=== PATIENT | female | born 1960 | race Caucasian/White ===

== ENCOUNTER → 2016-06-03 | Outpatient (CLI) | payer OTHER ==
[~2016-06-03] MED LIST: AMLH550 PO; ATOR-26 PO; CLX20 PO; FRRG PO; LISI2.5T5 PO; METF-383 PO; NEOMOIN2 TOP; POTA10CA28 PO
--- NOTE | 2016-06-03 13:52 | MAMMOGRAPHY REPORT ---
BILATERAL DIGITAL SCREENING MAMMOGRAM TOMOSYNTHESIS WITH CAD: 06/03/2016 CLINICAL HISTORY: Routine screening. Patient has no complaints. TECHNIQUE: Breast tomosynthesis in addition to standard 2D mammography was performed. Current study was also evaluated with a Computer Aided Detection (CAD) system. COMPARISON: Comparison is made to exams dated: 05/30/2014 mammogram, 06/01/2015 mammogram, 05/13/2013 ma mmogram, 04/26/2012 mammogram, 06/09/2011 mammogram, and 06/01/2010 mamm[facility] - [facility]. BREAST COMPOSITION: There are scattered areas of fibroglandular density in both breasts. FINDINGS: No suspicious masses, calcifications, or areas of architectural distortion are noted in e ither breast. There has been no significant interval change compared to prior exams. IMPRESSION: ACR BI-RADS CATEGORY 1: NEGATIVE There is no mammographic evidence of malignancy. A 1 year screening mammogram is recommended. The p atient will receive written notification of the results. Approximately 10% of breast cancers are not detected with mammography. A negative mammographic repor t should not delay biopsy if a clinically suggestive mass is present. Annetta Dunn M.D. ah/:06/03/2016 13:13:22 Landscape Manager: Frances ORTEGA(Tita)(M), [facility] letter sent: Normal 1/2 BI-RADS Code: ACR BI-RADS Category 1: Negative
== END | disposition home or self-care (01) ==
LOC: C.MAMM 09:00
PROVIDERS: ATTEND Family Medicine
DX: Z12.31 Encounter for screening mammogram for malignant neoplasm of breast (principal)

== ENCOUNTER → 2017-06-05 | Outpatient (CLI) | payer OTHER ==
[~2017-06-05] MED LIST changes: -NEOMOIN2 TOP; +NEOMOIN3 TOP
--- NOTE | 2017-06-06 12:57 | MAMMOGRAPHY REPORT ---
BILATERAL DIGITAL SCREENING MAMMOGRAM TOMOSYNTHESIS WITH CAD: 06/05/2017 CLINICAL HISTORY: Routine screening. Patient has no complaints. TECHNIQUE: Breast tomosynthesis in addition to standard 2D mammography was performed. Current study was also evaluated with a Computer Aided Detection (CAD) system. COMPARISON: Comparison is made to exams dated: 06/03/2016 mammogram, 06/01/2015 mammogram, 05/30/2014 [place] m mogram, 05/13/2013 mammogram, 04/26/2012 mammogram, and 06/09/2011 mammogram - [facility] er. BREAST COMPOSITION: There are scattered areas of fibroglandular density in both breasts. FINDINGS: There is a new 6.5 mm focal asymmetry in the 11:00 to 12:00 posterior right breast, for wh ich additional targeted ultrasound and possible additional mammographic views are recommended. No other suspicious mass, architectural distortion or cluster of microcalcifications is seen bilatera lly. IMPRESSION: ACR BI-RADS CATEGORY 0: INCOMPLETE EVALUATION: NEED ADDITIONAL IMAGING EVALUATION The new 6.5 mm focal asymmetry in the 11:00 to 12:00 posterior right breast needs additional evaluati on. The patient will be called to schedule an appointment. Approximately 10% of breast cancers are not detected with mammography. A negative mammographic report should not delay biopsy if a clinically suggestive mass is present. Helena Bailey M.D. ay/:06/05/2017 15:34:34 Origination Specialist: Catia Acevedo [facility] letter sent: Addl Imaging 0 BI-RADS Code: ACR BI-RADS Category 0: Incomplete Evaluation: Need Additional Imaging Evaluation
== END | disposition home or self-care (01) ==
LOC: C.MAMM 13:18
PROVIDERS: ATTEND Family Medicine
DX: Z12.31 Encounter for screening mammogram for malignant neoplasm of breast (principal); N64.89 Other specified disorders of breast

== ENCOUNTER → 2017-06-14 | Outpatient (CLI) | payer OTHER ==
--- NOTE | 2017-06-14 15:14 | MAMMOGRAPHY REPORT ---
UNILATERAL RIGHT DIGITAL DIAGNOSTIC MAMMOGRAM WITH CAD AND TARGETED RIGHT ULTRASOUND: 06/14/2017 CLINICAL HISTORY: 56-year-old woman called back from screening mammography for a newly visualized sub centimeter focal asymmetry in the upper outer quadrant of the right breast. Patient denies any known trauma or focal bruising in the superior right breast. TECHNIQUE: Spot compression right CC and MLO tomosynthesis images were obtained. A repeat right CC s pot compression view was obtained given breast mobility and the lesion is actually located in the 12: 00 axis based on the additional views. COMPARISON: Comparison is made to exams dated: 06/05/2017 mammogram, 06/03/2016 mammogram, 06/01/2015 ma mmogram, 05/30/2014 mammogram, 05/13/2013 mammogram, and 04/26/2012 mammogram - [facility]. BREAST COMPOSITION: There are scattered areas of fibroglandular density in the right breast. FINDINGS: The supplemental spot compression tomosynthesis images demonstrate a persistent rounded 5 mm dense focal asymmetry with tiny internal round lucencies, in the 12:00 posterior right breast. No associated architectural distortion or calcification. Further characterization with ultrasound was performed. On visual inspection, there is no evidence of bruising throughout the superior and 12:00 left breast. On ultrasound in the 12:00 right breast, 11 cm from the nipple, there is a superficial mixed echoge nicity mass. A hypoechoic area is noted with an echogenic tissue and the hypoechoic area is horizont al in orientation, there is an anechoic tubular structure adjacent to the mixed echogenicity lesion. Given indistinct borders it is difficult to obtain accurate measurements but it measures a proximall y 7.6 x 4.0 x 10.0 mm. This may be overestimated and the mammographic measurements are felt to be mo re accurate. This lesion could represent benign fat necrosis but given no known history of trauma it is indeterminate. Options of short follow-up versus tissue sampling were provided and we will opt t o biopsy this lesion for definitive characterization. IMPRESSION: ACR BI-RADS CATEGORY 4: SUSPICIOUS, TARGETED ULTRASOUND ACR BI-RADS CATEGORY 4: SUSPICIO US 1. Ultrasound guided core biopsy is recommended for a mixed echogenicity 5 mm mass in the 12:00 righ t breast, 11 cm from the nipple, which correlates with the newly visualized focal mammographic asymme try. These results and recommendations were discussed with the patient at the time of the exam. She tenta tively scheduled the biopsy prior to leaving our department. Approximately 10% of breast cancers are not detected with mammography. A negative mammographic report should not delay biopsy if a clinically suggestive mass is present. Helena Bailey M.D. ay/:06/14/2017 14:33:42 Deputy Sheriff Lieutenant: Nelida ORTEGA(Tita)(Kaylen), [facility] letter sent: Abnormal 4/5 BI-RADS Code: ACR BI-RADS Category 4: Suspicious Ultrasound BI-RADS: ACR BI-RADS Category 4: Suspici ous
== END | disposition home or self-care (01) ==
LOC: C.MAMM 13:29
PROVIDERS: ATTEND Family Medicine
DX: N63.41 Unspecified lump in right breast, subareolar (principal)

== ENCOUNTER → 2017-06-23 | Outpatient (CLI) | payer OTHER ==
--- NOTE | 2017-06-23 10:28 | Discharge Instructions ---
Discharge Instructions Procedure Procedure Date: Jun 23, 2017. Reason for visit: Right; Mixed Echogenecity Mass. Discharge Discharge Date: Jun 23, 2017. Discharge Diagnosis: status post breast biopsy Instructions Activity Recommendations: Additional Limitations (see below) Return to School/Work: no limitations Recommended Home Diet: No Limitations Provider Instructions: ACTIVITY RECOMMENDATIONS: * No lifting, pushing, pulling or exercising the affected side for three days. RETURN TO SCHOOL/WORK: * You may return to work/school after the procedure, but do not perform any strenuous activities for 24 to 48 hours. MEDICATIONS: * Tylenol (two 325 mg) every four to six hours if needed for mild pain (if not allergic to Tylenol). DIET: * Resume previous diet. SPECIAL CARE INSTRUCTIONS: * Keep biopsy site dry for 24 hours. May shower after 24 hours, but do not soak (bathe) incision. * May remove Tegaderm (plastic patch) tomorrow AFTER showering. * Leave the steri-strips on for one week. Allow the steri-strips to fall off by themselves. If not off after one week, you may remove them. You may place a Bandaid crosswise over the strips, if desired. * Apply ice 10 minutes on and 10 minutes off as needed. * Wear a bra at bedtime to sleep more comfortably for 2-3 days. * Your referring physician should have the results after approximately 5 to 7 business days. * Call for unusual bleeding, fever, drainage, etc or if you have any questions call during normal business hours or after hours call Dr Dunn, [phone]. FOLLOW UP VISIT: Follow-up with Referring Physician as scheduled. Allergies Coded Allergies: No Known Allergies (Unverified , 09/27/13) PER DR. JOAQUIN'S H&P SEPTEMBER 2012 [facility] Recommendations: Call your doctor if: * Temperature above 101 degrees * Pain not relieved by pain medicine ordered * There is increased drainage or redness from any incision * You have any unanswered questions or concerns. Your Doctors Instructions noted above were prepared by provider Annetta Dunn. Patient Signature Section: Patient Instructions Signature Page Kristin Kohli Patient (or Guardian) Signature/Date: I have read and understand the instructions given to me by my caregivers. Caregiver/RN/Doctor Signature/Date: The above-named patient and/or guardian has received patient instructions on this date. + Original Patient Signature Page (only) stays with chart. Please make copy for patient.
--- NOTE | 2017-06-23 13:36 | MAMMOGRAPHY REPORT ---
UNILATERAL RIGHT DIGITAL DIAGNOSTIC MAMMOGRAM TOMOSYNTHESIS: 06/23/2017 CLINICAL HISTORY: Status post right breast biopsy. TECHNIQUE: Breast tomosynthesis in addition to standard 2D mammography was performed. Postprocedura l right CC and ML tomosynthesis images were obtained. COMPARISON: Comparison is made to exams dated: 06/23/2017 ultrasound biopsy, 06/14/2017 ultrasound, 05/26 mammogram, 06/05/2017 mammogram, 06/03/2016 mammogram, and 06/01/2015 mammogram - [facility]. BREAST COMPOSITION: There are scattered areas of fibroglandular density in the right breast. FINDINGS: A new biopsy marker clip is seen at the site of the biopsied mass in the right 12:00 breas t. No significant postbiopsy hematoma is seen. IMPRESSION: POST PROCEDURE IMAGING FOR MARKER PLACEMENT New biopsy marker clip status post right breast biopsy. Pathology results are pending. Approximately 10% of breast cancers are not detected with mammography. A negative mammographic report should not delay biopsy if a clinically suggestive mass is present. Annetta Dunn M.D. ah/:06/23/2017 10:39:13 Guard Dance Hall: Catia Acevedo, [facility] BI-RADS Code: Post Procedure Imaging For Marker Placement
--- NOTE | 2017-06-23 13:36 | MAMMOGRAPHY REPORT ---
ULTRASOUND GUIDED BIOPSY RIGHT BREAST: 06/23/2017 CLINICAL HISTORY: Mixed echogenicity mass in the right 12:00 breast. PATIENT CONSENT: The procedure, risks and benefits were discussed with the patient and informed writt en consent was obtained. A timeout was performed immediately prior to the procedure. PROCEDURE DESCRIPTION: With ultrasound guidance, aseptic technique, and lidocaine as the local anesth etic (1% lidocaine to anesthetize the skin and 1% lidocaine with epinephrine to anesthetize the deepe r tissues), the mass of concern in the right 12:00 breast was sampled 3 times with a 14-gauge achieve biopsy needle. Immediately thereafter, with ultrasound guidance, aseptic technique, and lidocaine as the local anesthetic, a metallic localizer clip was placed at the biopsy site. Direct pressure was applied to the site immediately post procedure and hemostasis was achieved. Postprocedure unilateral mammograms were performed to confirm clip placement. The patient tolerated the procedure without co mplication. She was given wound care instructions. The specimens were sent to pathology for analysis . COMPARISON: Comparison is made to exams dated: 06/14/2017 ultrasound, 06/14/2017 mammogram, 06/05/2017 mammogram, 06/03/2016 mammogram, 06/01/2015 mammogram, and 05/30/2014 mammogram - [facility]. IMPRESSION: ULTRASOUND GUIDED BIOPSY Ultrasound guided core needle biopsy of the right 12:00 breast mass, with clip placement. The patien t will receive pathology results from her referring provider. Annetta Dunn M.D. /:06/23/2017 10:29:45 Oxygen Therapist: Catia Acevedo, [facility]
== END | disposition home or self-care (01) ==
LOC: C.MAMM 09:43
PROVIDERS: ATTEND Family Medicine
DX: N63.10 Unspecified lump in the right breast, unspecified quadrant (principal); N64.1 Fat necrosis of breast

== ENCOUNTER 2024-11-01 10:09 | Inpatient (IN) ==
[2024-11-01] MEDS: SODIUM CHLORIDE 0.9% 1,000 ML IV ONE ×2 (10:30→11:49)
[2024-11-01 10:53] LABS: Hematocrit (blood only) 36.8 % (37.0-47.0); Hemoglobin 12.5 g/dl (12.0-16.0); Immature Granulocytes # (auto) 0.41 K/uL (0.01-0.20); Immature Granulocytes % (auto) 3.9 %; Mean Corpuscular Hemoglobin 30.8 pg (25.0-34.0); Mean Corpuscular Volume 90.6 fL (80.0-100.0); Platelet Count 541 K/uL (130-400); RDW Standard Deviation 42.7 fL (36.4-46.3); Red Blood Count 4.06 M/uL (4.20-5.40); White Blood Count 10.46 K/ul (4.8-10.8)
--- NOTE | 2024-11-01 10:54 | XRay Report ---
XR chest 1V portable CLINICAL HISTORY: Sepsis. COMPARISON STUDY: Chest radiograph August 20, 2023. FINDINGS: Lung volumes are normal. Lungs are clear. There is no pneumothorax or pleural effusion. Car diac size is normal. Mediastinal contours are normal. There is no evidence for pulmonary edema. IMPRESSION: No acute cardiopulmonary findings. ACT 112: Negative or not required by law. Electronically signed by: Conner Gautam M.D. 11/01/2024 10:53 AM
[2024-11-01 11:17] LABS: Alanine Aminotransferase 92.0 U/L (7-52); Albumin Globulin Ratio 1.0 (0.9-2); Alkaline Phosphatase 129.0 U/L (34-104); Anion Gap 12.0 (3-11); Bilirubin,Total 0.4 mg/dl (0.2-1.0); Blood Urea Nitrogen 50.0 mg/dl (6-23); Calcium 9.2 mg/dl (8.6-10.3); Carbon Dioxide 24.0 mmol/L (21-32); Chloride 91.0 mmol/L (98-107); Creatinine Clr Calc Pharmacy 17.1 ml/min; Globulin 4.0 gm/dl (2.5-4.0); Glucose 165.0 mg/dl (70-99(Fasting)); Magnesium 1.1 mg/dl (1.7-2.4); Potassium 5.8 mmol/L (3.5-5.1); Sodium 127.0 mmol/L (136-145); Total Protein 7.9 gm/dl (6.0-8.3)
--- NOTE | 2024-11-01 11:23 | Emergency Department Note ---
Impression & Plan Acute dehydration, JOSE MARTIN (acute kidney injury), Hypomagnesemia, Transaminitis, Acute hypotension, Acute hyponatremia, Acute hyperkalemia, Elevated lactic acid level ED Provider Note HISTORY OF PRESENT ILLNESS: Patient is a 64-year-old female presenting with lightheadedness. Patient reports that starting yesterday she felt very lightheaded and woozy every time she stood up. Reports that she did only walk a few steps before she had to sit down again secondary to her symptoms. Denies any nausea or vomiting. Denies any diarrhea. Denies any fevers. She does have a ileostomy in place that was placed recently secondary to perforated diverticulitis. She denies any recent antibiotic use. She has no complaints other than feeling woozy. Denies any chest pain or shortness of breath. Denies any DVT or PE history. Patient reports she has been eating and drinking without any issue. Denies any dysuria or hematuria. ROS: as above PHYSICAL EXAM: Constitutional: Patient appears in no acute distress. HENT: Head: Normocephalic and atraumatic. Eyes: EOMI, PERRL Mouth/Throat: Mucous membranes moist. Neck: Trachea midline. Neck supple. Cardiovascular: Tachycardic with regular rhythm. No murmurs, rubs or gallops. Intact distal pulses. Pulmonary/Chest: No respiratory distress. Breath sounds clear and equal bilaterally. No wheezes or rales. No chest wall tenderness to palpation. Abdominal: Abdomen soft, no tenderness, rebound or guarding. Ileostomy in place. Musculoskeletal: No edema, tenderness or deformity noted. Skin: Warm and dry. No rash, erythema, pallor or cyanosis Psychiatric: Appropriate mood and affect for situation. Neurological: Alert and keenly responsive. CN II-XII grossly intact, moving all extremities equally and fully. MDM: - Vitals signs showed hypotension and tachycardia. - History obtained via patient. History as above. - Chronic conditions affecting care: HTN; HLD; DM-2 - Differential diagnoses include, but are not limited to: Sepsis; dehydration; electrolyte abnormality; UTI; pneumonia - Order placed for continuous cardiac monitoring. At this time, monitor showed rate of 81 bpm with normal sinus rhythm, per my interpretation. - External medical records reviewed. Wound visit note from 12/19/2019 was reviewed. Patient was followed in wound clinic for diabetic foot ulcer. - EKG image interpreted by myself showed normal sinus rhythm. Rate 91 bpm. QT 320. No acute ischemic changes. - Laboratory workup interpreted by myself showed normal WBC; thrombocytosis (plt 541); normal PT/INR; hyponatremia (Na 127); hyperkalemia (K 5.8); elevated lactate (3.6); JOSE MARTIN (Cr 3.37); elevated anion gap (12) with only slightly elevated glucose (165); hypomagnesemia (Mg 1.1); transaminitis (AST 41; ALT 92) with normal total bilirubin; normal troponin; normal procalcitonin; normal TSH - CXR image reviewed by myself is new for pneumonia, per my interpretation. - UA negative for infection - Blood cultures obtained - Patient given 2L NS in ER. Patient sepsis fluid volume calculation based on ideal body weight is 1500 mL. - Patient was able to void after fluid resusitation. - Patient's blood pressure did improve with volume resuscitation. She reports her dizziness and lightheadedness has also improved. Given 1 g IV magnesium for electrolyte replacement. - Considered CT abdomen/pelvis imaging, but patient does not have any reproducible abdominal pain on assessment. - Discussion was had with bilingual patient support caseworker about patient's case and need for admission - Hospitalist consulted for admission at 12:46 - Patient admitted to [facility] service for further evaluation and management. I have personally spent 61 minutes of critical care time in the direct management of this patient. This includes bedside care, interpretation of diagnostic studies, and testing, discussion with consultants, patient, and family members, and other required patient management activities. This 61 minutes is in excess of all separately billable procedures. ASSESSMENT AND PLAN: Diagnosis: acute dehydration; acute hyponatremia; acute hyperkalemia; elevated lactic acid; JOSE MARTIN; hypomagnesemia; transaminitis; acute hypotension Plan: admit Past Med/Surg History Problem List (Updated 11/01/24 @ 13:11 by Patricia Mitchell MD) Elevated lactic acid level (Acute) Acute hyperkalemia (Acute) Acute hyponatremia (Acute) Acute hypotension (Acute) Transaminitis (Acute) Hypomagnesemia (Acute) JOSE MARTIN (acute kidney injury) (Acute) Acute dehydration (Acute) Transaminitis Hypomagnesemia Acute kidney injury Hyponatremia Hypotension Medical History (Updated 11/01/24 @ 13:11 by Patricia Mitchell MD) Small bowel obstruction Endometriosis GERD (gastroesophageal reflux disease) Kidney stones Depression Diverticulosis Diabetes mellitus Hyperlipidemia Hypertension Surgical History History of hysterectomy History of bowel resection robotic low anterior resection with coloproctostomy, intraop flex sigmoidoscopy, diverting loop ileostomy 10/14/2024 History of bilateral knee replacement Family History (Updated 11/01/24 @ 13:01 by SARWAT Oliver) Father Diabetes Stroke Hypertension Social History Smoking Status: Never smoker Hx Alcohol Use: No Hx Substance Use: No Preferred Language: Maori Beliefs That Will Affect Care: Restorationism marital status: Single current occupational status: retired Feels Safe at Home: Yes Allergies Allergies Allergy/AdvReac Type Severity Reaction Status Date / Time No Known Allergies Allergy Unverified 11/01/24 11:04 Home Meds Home Medications Medication Instructions Recorded Confirmed aspirin 81 mg tablet,delayed 81 mg PO DAILY 11/21/19 11/01/24 release atorvastatin 40 mg tablet 40 mg PO DAILY 11/21/19 11/01/24 citalopram 40 mg tablet 40 mg PO DAILY 11/21/19 11/01/24 metformin 850 mg tablet 850 mg PO BID 11/21/19 11/01/24 potassium chloride 10 mEq 10 meq PO DAILY 11/21/19 11/01/24 capsule,extended release lisinopril 20 1 tab PO DAILY 10/23/24 11/01/24 mg-hydrochlorothiazide 25 mg tablet buspirone 5 mg tablet 5 mg PO BID PRN Anxiety 11/01/24 11/01/24 cyanocobalamin (vitamin B-12) 1,000 mcg PO DAILY 11/01/24 11/01/24 1,000 mcg tablet (Vitamin B-12) fluticasone propionate 50 2 spray intranasal QAM 11/01/24 11/01/24 mcg/actuation nasal spray,suspension multivitamin with [id number] 1 tab PO DAILY 11/01/24 11/01/24 400 mcg-120 mg tablet (One Daily Women 50 Plus) Results & Data (ED) Vital Signs Vital Signs - 24 hr 11/01/24 10:13 11/01/24 10:24 11/01/24 10:30 Temperature 36.7 C Temperature Source Oral Pulse Rate 93 H 94 H 90 Pulse Rate [Finger] Pulse Rate from SpO2 Sensor Respiratory Rate 22 18 Respiratory Effort / Characteristics Non-Labored Spontaneous Respiratory Depth Normal Respiratory Pattern Blood Pressure 84/59 L 80/54 L Blood Pressure [Right Arm] Blood Pressure Mean 67 60 Blood Pressure Mean [Right Arm] Blood Pressure Position [Right Arm] Pulse Oximetry 100 99 Oxygen Delivery Method Room Air Room Air Sepsis Recent Fever Within 48 Hours No Sepsis New/Unexplained Change in Mental Status N/A Sepsis Action Taken by Nursing No Action Required 11/01/24 10:30 11/01/24 10:31 11/01/24 10:33 Temperature Temperature Source Pulse Rate 90 Pulse Rate [Finger] 91 H Pulse Rate from SpO2 Sensor 90 Respiratory Rate 18 20 Respiratory Effort / Characteristics Non-Labored Spontaneous Respiratory Depth Normal Respiratory Pattern Regular Blood Pressure 80/54 L Blood Pressure [Right Arm] 80/54 L Blood Pressure Mean 60 Blood Pressure Mean [Right Arm] 62 Blood Pressure Position [Right Arm] Sitting Pulse Oximetry 99 98 Oxygen Delivery Method Room Air Sepsis Recent Fever Within 48 Hours Sepsis New/Unexplained Change in Mental Status Sepsis Action Taken by Nursing 11/01/24 10:45 11/01/24 10:45 11/01/24 11:00 Temperature Temperature Source Pulse Rate 99 H Pulse Rate [Finger] Pulse Rate from SpO2 Sensor Respiratory Rate 18 Respiratory Effort / Characteristics Respiratory Depth Respiratory Pattern Blood Pressure 82/58 L 107/58 L Blood Pressure [Right Arm] Blood Pressure Mean 70 67 Blood Pressure Mean [Right Arm] Blood Pressure Position [Right Arm] Pulse Oximetry 98 Oxygen Delivery Method Room Air Sepsis Recent Fever Within 48 Hours Sepsis New/Unexplained Change in Mental Status Sepsis Action Taken by Nursing 11/01/24 11:00 11/01/24 11:00 11/01/24 11:00 Temperature Temperature Source Pulse Rate Pulse Rate [Finger] Pulse Rate from SpO2 Sensor Respiratory Rate Respiratory Effort / Characteristics Respiratory Depth Respiratory Pattern Blood Pressure 107/58 L 107/58 L 107/58 L Blood Pressure [Right Arm] Blood Pressure Mean 67 67 67 Blood Pressure Mean [Right Arm] Blood Pressure Position [Right Arm] Pulse Oximetry Oxygen Delivery Method Sepsis Recent Fever Within 48 Hours Sepsis New/Unexplained Change in Mental Status Sepsis Action Taken by Nursing 11/01/24 11:00 11/01/24 11:03 11/01/24 11:15 Temperature Temperature Source Pulse Rate 85 82 Pulse Rate [Finger] Pulse Rate from SpO2 Sensor Respiratory Rate 22 16 Respiratory Effort / Characteristics Respiratory Depth Respiratory Pattern Blood Pressure 98/65 L Blood Pressure [Right Arm] Blood Pressure Mean 70 Blood Pressure Mean [Right Arm] Blood Pressure Position [Right Arm] Pulse Oximetry Oxygen Delivery Method Sepsis Recent Fever Within 48 Hours Sepsis New/Unexplained Change in Mental Status Sepsis Action Taken by Nursing 11/01/24 11:18 11/01/24 11:32 11/01/24 11:32 Temperature Temperature Source Pulse Rate 79 Pulse Rate [Finger] Pulse Rate from SpO2 Sensor 79 Respiratory Rate 27 H Respiratory Effort / Characteristics Respiratory Depth Respiratory Pattern Blood Pressure 113/68 113/68 Blood Pressure [Right Arm] Blood Pressure Mean 76 76 Blood Pressure Mean [Right Arm] Blood Pressure Position [Right Arm] Pulse Oximetry 100 Oxygen Delivery Method Sepsis Recent Fever Within 48 Hours Sepsis New/Unexplained Change in Mental Status Sepsis Action Taken by Nursing 11/01/24 11:33 11/01/24 11:39 11/01/24 11:45 Temperature Temperature Source Pulse Rate 80 80 Pulse Rate [Finger] Pulse Rate from SpO2 Sensor 80 80 Respiratory Rate 28 H 20 Respiratory Effort / Characteristics Respiratory Depth Respiratory Pattern Blood Pressure 100/65 Blood Pressure [Right Arm] Blood Pressure Mean 79 Blood Pressure Mean [Right Arm] Blood Pressure Position [Right Arm] Pulse Oximetry 97 100 Oxygen Delivery Method Sepsis Recent Fever Within 48 Hours Sepsis New/Unexplained Change in Mental Status Sepsis Action Taken by Nursing 11/01/24 11:45 11/01/24 12:00 11/01/24 12:00 Temperature Temperature Source Pulse Rate 81 Pulse Rate [Finger] Pulse Rate from SpO2 Sensor 80 Respiratory Rate 22 Respiratory Effort / Characteristics Respiratory Depth Respiratory Pattern Blood Pressure 100/65 104/66 Blood Pressure [Right Arm] Blood Pressure Mean 79 78 Blood Pressure Mean [Right Arm] Blood Pressure Position [Right Arm] Pulse Oximetry 98 Oxygen Delivery Method Sepsis Recent Fever Within 48 Hours Sepsis New/Unexplained Change in Mental Status Sepsis Action Taken by Nursing 11/01/24 12:00 Temperature Temperature Source Pulse Rate Pulse Rate [Finger] Pulse Rate from SpO2 Sensor Respiratory Rate Respiratory Effort / Characteristics Respiratory Depth Respiratory Pattern Blood Pressure 104/66 Blood Pressure [Right Arm] Blood Pressure Mean 78 Blood Pressure Mean [Right Arm] Blood Pressure Position [Right Arm] Pulse Oximetry Oxygen Delivery Method Sepsis Recent Fever Within 48 Hours Sepsis New/Unexplained Change in Mental Status Sepsis Action Taken by Nursing Laboratory Data 11/01/24 10:23 11/01/24 10:23 Lab Results 11/01/24 11/01/24 11/01/24 Range/Units 10:23 10:38 12:24 WBC 10.46 (4.8-10.8) K/ul RBC 4.06 L (4.20-5.40) M/uL Hgb 12.5 (12.0-16.0) g/dl Hct 36.8 L (37.0-47.0) % MCV 90.6 (80.0-100.0) fL MCH 30.8 (25.0-34.0) pg MCHC 34.0 (32.0-36.0) g/dL RDW Std Deviation 42.7 (36.4-46.3) fL RDW Coeff of Cammy 13.0 (11.5-14.5) % Plt Count 541 H (130-400) K/uL MPV 9.8 (9.4-12.4) fL Immature Gran % (Auto) 3.9 % Neut % (Auto) 62.2 % Lymph % (Auto) 24.2 % Foard % (Auto) 7.9 % Eos % (Auto) 1.2 % Baso % (Auto) 0.6 % Neut # (Auto) 6.50 (1.40-6.50) K/uL Lymph # (Auto) 2.53 (1.20-3.40) K/uL Foard # (Auto) 0.83 H (0.11-0.59) K/uL Eos # (Auto) 0.13 (0.00-0.50) K/uL Baso # (Auto) 0.06 (0.00-0.20) K/uL Immature Gran # (Auto) 0.41 H (0.01-0.20) K/uL PT 10.6 (9.0-12.0) Seconds INR 1.0 (0.9-1.1) APTT 26 (21-31) Seconds PTT Ratio 1.0 Sodium 127 L (136-145) mmol/L Potassium 5.8 H (3.5-5.1) mmol/L Chloride 91 L (98-107) mmol/L Carbon Dioxide 24 (21-32) mmol/L Anion Gap 12 H (3-11) BUN 50 H (6-23) mg/dl Creatinine 3.37 H (0.6-1.2) mg/dl Est Cr Clr Drug Dosing 17.1 ml/min eGFR 14.82 BUN/Creatinine Ratio 14.8 (10-20) Glucose 165 H (70-99(Fasting)) mg/dl Lactate 3.6 H* 3.3 H* (0.4-2.0) mmol/L Calcium 9.2 (8.6-10.3) mg/dl Magnesium 1.1 L (1.7-2.4) mg/dl Total Bilirubin 0.4 (0.2-1.0) mg/dl AST 41 H (13-39) U/L ALT 92 H (7-52) U/L Alkaline Phosphatase 129 H (34-104) U/L Troponin I High Sens 3.7 (0-14) pg/ml Total Protein 7.9 (6.0-8.3) gm/dl Albumin 3.9 (3.4-5.0) gm/dl Globulin 4.0 (2.5-4.0) gm/dl Albumin/Globulin Ratio 1.0 (0.9-2) Procalcitonin 0.33 (0-0.5) ng/ml TSH 1.590 (0.300-4.500) uIu/ml Urine Color Urine Appearance (Clear) Urine pH (4.5-7.5) Ur Specific [place] (1.000-1.030) Urine Protein (Negative) Urine Glucose (UA) (Negative) Urine Ketones (Negative) Urine Blood (Negative) Urine Nitrite (Negative) Urine Bilirubin (Negative) Urine Urobilinogen (Negative) Ur Leukocyte Esterase (Negative) Urine WBC (Auto) (0-5) /hpf Urine RBC (Auto) (0-2) /hpf U Hyaline Cast (Auto) (0-2) /lpf U Epithel Cells (Auto) (0-2) /hpf Urine Bacteria (Auto) (None Seen) Urine Comment 11/01/24 Range/Units 12:37 WBC (4.8-10.8) K/ul RBC (4.20-5.40) M/uL Hgb (12.0-16.0) g/dl Hct (37.0-47.0) % MCV (80.0-100.0) fL MCH (25.0-34.0) pg MCHC (32.0-36.0) g/dL RDW Std Deviation (36.4-46.3) fL RDW Coeff of Cammy (11.5-14.5) % Plt Count (130-400) K/uL MPV (9.4-12.4) fL Immature Gran % (Auto) % Neut % (Auto) % Lymph % (Auto) % [place] % (Auto) % Eos % (Auto) % Baso % (Auto) % Neut # (Auto) (1.40-6.50) K/uL Lymph # (Auto) (1.20-3.40) K/uL [place]oard # (Auto) (0.11-0.59) K/uL Eos # (Auto) (0.00-0.50) K/uL Baso # (Auto) (0.00-0.20) K/uL Immature Gran # (Auto) (0.01-0.20) K/uL PT (9.0-12.0) Seconds INR (0.9-1.1) APTT (21-31) Seconds PTT Ratio Sodium (136-145) mmol/L Potassium (3.5-5.1) mmol/L Chloride (98-107) mmol/L Carbon Dioxide (21-32) mmol/L Anion Gap (3-11) BUN (6-23) mg/dl Creatinine (0.6-1.2) mg/dl Est Cr Clr Drug Dosing ml/min eGFR BUN/Creatinine Ratio (10-20) Glucose (70-99(Fasting)) mg/dl Lactate (0.4-2.0) mmol/L Calcium (8.6-10.3) mg/dl Magnesium (1.7-2.4) mg/dl Total Bilirubin (0.2-1.0) mg/dl AST (13-39) U/L ALT (7-52) U/L Alkaline Phosphatase (34-104) U/L Troponin I High Sens (0-14) pg/ml Total Protein (6.0-8.3) gm/dl Albumin (3.4-5.0) gm/dl Globulin (2.5-4.0) gm/dl Albumin/Globulin Ratio (0.9-2) Procalcitonin (0-0.5) ng/ml TSH (0.300-4.500) uIu/ml Urine Color Yellow Urine Appearance Clear (Clear) Urine pH 8.5 H (4.5-7.5) Ur Specific [place] 1.008 (1.000-1.030) Urine Protein Negative (Negative) Urine Glucose (UA) Negative (Negative) Urine Ketones Negative (Negative) Urine Blood Negative (Negative) Urine Nitrite Negative (Negative) Urine Bilirubin Negative (Negative) Urine Urobilinogen Negative (Negative) Ur Leukocyte Esterase 1+ H (Negative) Urine WBC (Auto) 6-10 H (0-5) /hpf Urine RBC (Auto) 0-2 (0-2) /hpf U Hyaline Cast (Auto) 3-5 H (0-2) /lpf U Epithel Cells (Auto) 3-5 H (0-2) /hpf Urine Bacteria (Auto) None Seen (None Seen) Urine Comment Administered Medications Discontinued Medications Sodium Chloride (Nss) 1,000 mls @ 999 mls/hr IV .Q1H1M ONE Stop: 11/01/24 11:32 Last Infusion: 11/01/24 11:42 Dose: Infused Documented By: Admin: 11/01/24 10:30 Dose: 999 mls/hr Documented By: SANJUANA Sodium Chloride (Nss) 1,000 mls @ 999 mls/hr IV .Q1H1M ONE Stop: 11/01/24 12:21 Last Infusion: 11/01/24 12:52 Dose: Infused Documented By: Admin: 11/01/24 11:49 Dose: 999 mls/hr Documented By: YESSICA Magnesium Sulfate/Dextrose (Magnesium Sulfate / D5w) 1 gm in 100 mls @ 100 mls/hr IV NOW STA Stop: 11/01/24 12:25 Last Infusion: 11/01/24 12:52 Dose: Infused Documented By: Admin: 11/01/24 11:48 Dose: 100 mls/hr Documented By: YESSICA Imaging Data Radiologist's Impression: Chest X-Ray 11/01/24 10:32 XR chest 1V portable CLINICAL HISTORY: Sepsis. COMPARISON STUDY: Chest radiograph August 20, 2023. FINDINGS: Lung volumes are normal. Lungs are clear. There is no pneumothorax or pleural effusion. Cardiac size is normal. Mediastinal contours are normal. There is no evidence for pulmonary edema. IMPRESSION: No acute cardiopulmonary findings. ACT 112: Negative or not required by law. Electronically signed by: Conner Gautam M.D. 11/01/2024 10:53 AM Discharge Plan Visit Data Chief Complaint: Hypotension Stated Complaint: DIZZINESS, HYPOTENSION ED Provider: Patricia Mitchell Discharge Problem: Acute dehydration, JOSE MARTIN (acute kidney injury), Hypomagnesemia, Transaminitis, Acute hypotension, Acute hyponatremia, Acute hyperkalemia, Elevated lactic acid level Condition: Serious Forms Stand Alone Forms: My [facility] Prescriptions Prescriptions: No Action metformin 850 mg tablet 850 mg PO BID potassium chloride 10 mEq capsule, extended release 10 meq PO DAILY atorvastatin 40 mg tablet 40 mg PO DAILY citalopram 40 mg tablet 40 mg PO DAILY aspirin 81 mg tablet,delayed release (DR/EC) 81 mg PO DAILY cyanocobalamin (vitamin B-12) [Vitamin B-12] 1,000 mcg Tablet 1,000 mcg PO DAILY One Daily Women 50 Plus 400-120 mcg-mg Tablet 1 tab PO DAILY buspirone 5 mg Tablet 5 mg PO BID PRN (Reason: Anxiety) fluticasone propionate 50 mcg/actuation spray,suspension 2 spray INTRANASAL QAM lisinopril-hydrochlorothiazide 20-25 mg tablet 1 tab PO DAILY Referrals Referrals: Harsha Last MD [Primary Care Provider] -
[2024-11-01 11:32] LABS: Thyroid Stimulating Hormone 1.59 uIu/ml (0.300-4.500)
[2024-11-01 11:39] LABS: INR 1.0 (0.9-1.1); Partial Thromboplastin Time 26 Seconds (21-31); Prothrombin Time 10.6 Seconds (9.0-12.0)
[2024-11-01] MEDS: MAGNESIUM SULFATE / D5W 1 GM/100 ML BAG IV STA (11:48)
--- NOTE | 2024-11-01 12:55 | History & Physical Report ---
Date of Service November 01, 2024 Assessment & Plan (1) Hypotension: (2) History of bowel resection: (3) Elevated lactic acid level: (4) Hyponatremia: (5) Acute kidney injury: (6) Hypomagnesemia: (7) Transaminitis: (8) Diabetes mellitus: (9) Hypertension: (10) Hyperlipidemia: (11) Depression: Plan 64 year old female with PMH significant for type 2 diabetes, dyslipidemia, hypertension, osteoarthritis, depression with anxiety, and history of recurrent diverticulitis s/p resection with ileostomy placement on 10/14/2024 with post op ileus and then recent SBO on 10/23/2024 who presented to the ED on 11/01/2024 with dizziness and lightheadedness and is being admitted for hypotension, electrolyte abnormalities, and JOSE MARTIN. Hypotension Patient presented to ED with dizziness x1 day Initial BPs 80s/50s with HRs in the 90s s/p 2L NSS and pressures improved to 100-115s/60s Continue MIVF at 125mL/hr Hold antihypertensives History of bowel resection Elevated lactic acid level History of recurrent diverticulitis s/p resection with ileostomy placement on 10/14/2024 with post op ileus and then recent SBO on 10/23/[address] abdomen given recent surgery and elevated lactic acid Follow blood cultures Recheck lactate at 1600 Hyponatremia Na 127 on admission (prior Na 134 on 10/26/2024 per records) Osmolality 284, urine osmolality 247, urine sodium 16 Likely due to dehydration although patient denies s/s of dehydration Continue MIVF Recheck BMP at 1600 Consult nephrology: appreciate recs JOSE MARTIN Creat 3.37 on admission (prior creat 0.7 on 10/26/2024 per records) Patient denies s/s dehydration, NSAID use, diuretics, no recent contrast per records s/p 2L NSS in the ED Continue MIVF Recheck BMP at 1600 Consult nephrology: appreciate recs Hypomagnesemia Mag 1.1 on admission s/p 2g magnesium Recheck Mag at 1600 Hyperkalemia Hold home KCl Transaminitis AST 41, ALT 922, alk phos 129 on admission Likely due to dehydration Recheck CMP in am Type 2 diabetes Hold home metformin while inpatient BSG ACHS and SSI Hypertension Hold lisinopril-HCTZ due to hypotension Hyperlipidemia Continue atorvastatin Depression Continue citalopram and buspar DVT Prophylaxis: SQ Heparin Code Status: FULL CODE - As per discussion at bedside with the patient. PCP: Harsha Last Disposition: admit to [facility] tele Patient seen in collaboration with Dr Enriquez. Please see addendum. I spent a total of 70 minutes coordinating, documenting and providing care for this patient excluding time spent in the performance of separately billed services or time spent by another provider/QHP. Admission and Anticipated Discharge Date Admission Date: 11/01/2024 History of Present Illness Chief Complaint: dizziness Primary Care Provider: Harsha Last MD 64 year old female with PMH significant for type 2 diabetes, dyslipidemia, hypertension, osteoarthritis, depression with anxiety, and history of recurrent diverticulitis s/p resection with ileostomy placement on 10/14/2024 with post op ileus and then recent SBO on 10/23/2024 who presented to the ED on 11/01/2024 with dizziness x1 day. Patient reports she started feeling dizzy yesterday. She notes blurry vision upon standing but denies sensation of room spinning, syncope or near syncope. This continued into today, which is what prompted her to seek evaluation. She notes adequate hydration where she drinks about 68oz of water per day. She denies N/V, increased output from her ostomy, recent sick contacts. She takes her blood pressure at home but cannot remember what her readings were prior to coming in. Denies fevers, chills, chest pain, SOB, abdominal pain, dysuria, weakness. She lives at home with her mom and brother. Allergies Allergy/AdvReac Type Severity Reaction Status Date / Time No Known Allergies Allergy Unverified 11/01/24 11:04 Home Medications Medication Instructions Recorded Confirmed Type aspirin 81 mg tablet,delayed 81 mg PO DAILY 11/21/19 11/01/24 History release atorvastatin 40 mg tablet 40 mg PO DAILY 11/21/19 11/01/24 History citalopram 40 mg tablet 40 mg PO DAILY 11/21/19 11/01/24 History metformin 850 mg tablet 850 mg PO BID 11/21/19 11/01/24 History potassium chloride 10 mEq 10 meq PO DAILY 11/21/19 11/01/24 History capsule,extended release lisinopril 20 1 tab PO DAILY 10/23/24 11/01/24 History mg-hydrochlorothiazide 25 mg tablet buspirone 5 mg tablet 5 mg PO BID PRN Anxiety 11/01/24 11/01/24 History cyanocobalamin (vitamin B-12) 1,000 mcg PO DAILY 11/01/24 11/01/24 History 1,000 mcg tablet (Vitamin B-12) fluticasone propionate 50 2 spray intranasal QAM 11/01/24 11/01/24 History mcg/actuation nasal spray,suspension multivitamin with [id number] 1 tab PO DAILY 11/01/24 11/01/24 History 400 mcg-120 mg tablet (One Daily Women 50 Plus) Past Med/Surg History Problem List (Updated 11/01/24 @ 13:11 by Patricia Mitchell MD) Elevated lactic acid level (Acute) Acute hyperkalemia (Acute) Acute hyponatremia (Acute) Acute hypotension (Acute) Transaminitis (Acute) Hypomagnesemia (Acute) JOSE MARTIN (acute kidney injury) (Acute) Acute dehydration (Acute) Transaminitis Hypomagnesemia Acute kidney injury Hyponatremia Hypotension Medical History (Updated 11/01/24 @ 13:11 by Patricia Mitchell MD) Small bowel obstruction Endometriosis GERD (gastroesophageal reflux disease) Kidney stones Depression Diverticulosis Diabetes mellitus Hyperlipidemia Hypertension Surgical History History of hysterectomy History of bowel resection robotic low anterior resection with coloproctostomy, intraop flex sigmoidoscopy, diverting loop ileostomy 10/14/2024 History of bilateral knee replacement Family History (Updated 11/01/24 @ 13:01 by SARWAT Oliver) Father Diabetes Stroke Hypertension Social History (Updated 11/01/24 @ 15:27 by SARWAT Oliver) Smoking Status: Never smoker Hx Alcohol Use: No Hx Substance Use: No Preferred Language: Upper Sorbian Communication Ability: Effective [employer] [place] Required: No Beliefs That Will Affect Care: Rastafarian marital status: Single Current Living Situation: Family Current Living Situation Comment: mom and brother current occupational status: retired Feels Safe at Home: Yes Safety Concerns: Feels Safe At This Time Assistive Devices: None Review of Systems Review of Systems: All systems reviewed & are unremarkable except as noted in HPI & below Physical Exam Physical Exam: General/Psych: WD/WN, sitting up in bed, NAD, conversing easily Head: normocephalic, atraumatic Eyes: normal inspection, PERRL, conjunctivae pink, anicteric sclerae ENT: external ear and nose normal, oropharynx normal Neck: normal visual inspection, trachea midline Respiratory: normal respiratory effort, lungs clear to auscultation, no wheeze/rales/rhonchi, no accessory muscle use Cardiovascular: regular rate and rhythm, no murmur/rub/gallop, no JVD Extremities: no cyanosis or clubbing, normal peripheral pulses, no BLE edema Abdomen/GI: normal bowel sounds, soft, nontender, no hepatosplenomegaly, RLQ ileostomy in place Neurologic/MSK: A+Ox3, motor strength 5/5, moves all extremities Skin: no rashes, normal color, warm and dry, two lap surgical incisions at RLQ and LUQ with surgical glue c/d/i Results & Data Results & Data Vital Signs (Past 12 Hours) Vital Signs Temp Pulse Pulse Resp BP BP Pulse Ox 11/01/24 12:00 104/66 11/01/24 12:00 104/66 11/01/24 12:00 81 22 98 11/01/24 11:45 100/65 11/01/24 11:45 100/65 11/01/24 11:39 80 20 100 11/01/24 11:33 80 28 H 97 11/01/24 11:32 113/68 11/01/24 11:32 113/68 11/01/24 11:18 79 27 H 100 11/01/24 11:15 98/65 L 11/01/24 11:03 82 16 11/01/24 11:00 85 22 11/01/24 11:00 107/58 L 11/01/24 11:00 107/58 L 11/01/24 11:00 107/58 L 11/01/24 11:00 107/58 L 11/01/24 10:45 82/58 L 11/01/24 10:45 99 H 18 98 11/01/24 10:33 90 20 98 11/01/24 10:31 91 H 18 80/54 L 99 11/01/24 10:30 80/54 L 11/01/24 10:30 90 18 80/54 L 99 11/01/24 10:24 94 H 11/01/24 10:13 36.7 C 93 H 22 84/59 L 100 O2 Del Method 11/01/24 12:00 11/01/24 12:00 11/01/24 12:00 11/01/24 11:45 11/01/24 11:45 11/01/24 11:39 11/01/24 11:33 11/01/24 11:32 11/01/24 11:32 11/01/24 11:18 11/01/24 11:15 11/01/24 11:03 11/01/24 11:00 11/01/24 11:00 11/01/24 11:00 11/01/24 11:00 11/01/24 11:00 11/01/24 10:45 11/01/24 10:45 Room Air 11/01/24 10:33 11/01/24 10:31 Room Air 11/01/24 10:30 11/01/24 10:30 Room Air 11/01/24 10:24 11/01/24 10:13 Room Air Laboratory Results Short CBC 11/01/24 Range/Units 10:23 WBC 10.46 (4.8-10.8) K/ul Hgb 12.5 (12.0-16.0) g/dl Hct 36.8 L (37.0-47.0) % Plt Count 541 H (130-400) K/uL BMP 11/01/24 10:23 Sodium 127 L Potassium 5.8 H Chloride 91 L Carbon Dioxide 24 BUN 50 H Creatinine 3.37 H Glucose 165 H Calcium 9.2 Liver Function 11/01/24 Range/Units 10:23 Total Bilirubin 0.4 (0.2-1.0) mg/dl AST 41 H (13-39) U/L ALT 92 H (7-52) U/L Alkaline Phosphatase 129 H (34-104) U/L Albumin 3.9 (3.4-5.0) gm/dl Urine 11/01/24 Range/Units 12:37 Urine Color Yellow Urine Appearance Clear (Clear) Urine pH 8.5 H (4.5-7.5) Ur Specific [place] 1.008 (1.000-1.030) Urine Protein Negative (Negative) Urine Glucose (UA) Negative (Negative) I have independently reviewed and interpreted patient's admitting labs including CBC, CMP, PTT, PT/INR, mag. troponin, lactate, procalcitonin, TSH. Diagnostic Findings Chest X-Ray 11/01/24 10:32 XR chest 1V portable CLINICAL HISTORY: Sepsis. COMPARISON STUDY: Chest radiograph August 20, 2023. FINDINGS: Lung volumes are normal. Lungs are clear. There is no pneumothorax or pleural effusion. Cardiac size is normal. Mediastinal contours are normal. There is no evidence for pulmonary edema. IMPRESSION: No acute cardiopulmonary findings. ACT 112: Negative or not required by law. Electronically signed by: Conner Gautam M.D. 11/01/2024 10:53 AM ECG Additional Comments: I have independently reviewed and interpreted patient's admitting EKG which revealed: NSR at 91bpm Code Status & VTE Plan Code Status Full Code Supervising Physician Co-Signing Physician Notes Attending Addendum: Case reviewed with the advanced practitioner. I have personally performed a history and physical examination on the patient. I have reviewed the advanced practitioner's documentation on the date of service referenced in note, and I agree with, and take responsibility for the plan of care. please refer to her notes for full details patient seen and examined, records reviewed by myself as well on exam, patient seen resting in bed, comfortable states she feels ok overall denies dizziness/lightheadedness denies problems with urination, abdominal pain, fever/chills denies using NSAIDS, diarrhea, vomiting no other symptoms VS noted and reviewed oriented x3, not in distress, speaks in sentences with no effort nor accessory muscle use normal rate, regular rhythm, no murmurs clear breath sounds bilaterally non distended, soft, nontender no bipedal edema, erythema, warmth no neuro deficits all labs, imaging noted and reviewed ASSESSMENT AND PLAN> HYPOTENSION SECONDARY TO VOLUME DEPLETION ACUTE RENAL FAILURE, HYPONATREMIA, MILD HYPERKALEMIA, LACTIC ACIDOSIS RECENT COLON RESECTION, ILEOSTOMY PLACEMENT, FOR RECURRENT DIVERTICULITIS no signs of signs and symptoms of infection, afebrile, no leukocytosis--> sepsis unlikely no IV contrast given during recent admission CT abd/pelvis: no obstruction, no ischemia noted continue IV fluids repeat BMP at 4pm- K improved to 5.0, crea also improved to 2.3, Na improved to 130, lactic acid 1.5 Nephro consult other diagnoses and plan of care as per advanced practitioner's notes I spent a total of 40 minutes coordinating, documenting, and providing care for this patient, excluding time spent in the performance of separately billed services or time spent by another provider/QHP. Tyshawn Enriquez MD
[2024-11-01 12:57] LABS: Appearance Urine Clear (Clear); Bacteria Urine Automated None Seen (None Seen); Glucose Urine UA Negative (Negative); RBC Urine Automated 0-2 /hpf (0-2)
[2024-11-01] MEDS: MAGNESIUM OXIDE 400 MG TAB PO STA (14:33)
[2024-11-01] MEDS: MAGNESIUM SULFATE / D5W 1 GM/100 ML BAG IV ONE (14:34)
--- NOTE | 2024-11-01 15:00 | CT Scan Report ---
CT SCAN OF THE ABDOMEN AND PELVIS WITHOUT IV CONTRAST CLINICAL HISTORY: Recent ileostomy. Elevated lactate. COMPARISON STUDY: Abdominal CT dated 10/23/2024 TECHNIQUE: CT scan of the abdomen and pelvis is performed from the lung bases to the proximal femora. Images are reviewed in the axial, sagittal, and coronal planes. IV contrast was not administered for this examination as per the referring clinician. Note that the examination was performed and signifi cantly suboptimal fashion without oral and IV contrast. A dose lowering technique was utilized adheri ng to the principles of ALARA. CT DOSE: 1297.97 mGy.cm FINDINGS: Lung bases: The heart is normal in size and without pericardial effusion. A 2 mm pleural-based nodule at the left lung base on image #30 is unchanged. The lung bases are otherwise clear. A small hiatal hernia is noted. Liver: The unenhanced liver is normal in size, contour, and attenuation. There is no intrahepatic byron iary ductal dilatation. A 2.0 cm right lobe hepatic hypodensity on image #38 is unchanged and likely represents a hemangioma when compared to prior studies. Gallbladder: There are tiny calcified gallstones with no CT evidence of acute cholecystitis. Spleen: Normal in size and attenuation. Pancreas: The unenhanced pancreas is grossly unremarkable. Adrenal glands: Unremarkable. Kidneys: The unenhanced kidneys are normal in size and without hydronephrosis. There are no renal america culi identified. A 1.6 cm complex/hyperdense cyst is again seen in the upper pole of left kidney, and a subcentimeter hyperdense cyst there is again seen in the anterior interpolar right kidney. Additio nal renal cysts measuring up to 2.2 cm. Abdominal vasculature: The abdominal aorta is normal in course and caliber. Bowel: There is postsurgical change from rectosigmoid resection with colocolonic anastomosis. There h as also been a distal ileal resection with a double barrel ileostomy in the right lower quadrant. Car otid tracheostomy site is likely related to recent surgery. There are mildly distended loops of small bowel in the left upper quadrant which measure up to 4 cm in diameter. The degree of small bowel dis tention is significantly improved from 10/24/2019 5 mm representing ileus. There is no transition point or evidence of high-grade obstruction. There are mildly loops of small bowel in the right lower quad rant (axial image #236 and (. There is no pneumatosis intestinalis or portal venous gas. There is mil [id number] diverticulosis of the remaining colon without CT evidence of acute diverticulitis. The appendix is well-visualized and normal. Peritoneum: There is no intraperitoneal free air or abdominal ascites. Lymphadenopathy: None. Pelvic viscera: The bladder, uterus, and adnexa are normal as visualized. Skeletal structures: The skeletal structures are osteopenic. There is mild to moderate lumbosacral sp ondylosis. Sclerotic change is noted in the sacroiliac joints. No lytic or blastic lesions are seen. IMPRESSION: 1. Suboptimal examination without oral and IV contrast. 2. There is postsurgical change from rectosigmoid resection as well as ileal resection with double ba rrel ileostomy in the right lower quadrant. 3. There are mildly distended loops of small bowel in left upper quadrant with no transition point id entified and no evidence of high-grade obstruction. The degree of distention has significantly improv ed from 10/23/2024 and this may represent a mild ileus. Clinical correlation will be essential. 4. There are mildly thick walled loops of small bowel in the right lower quadrant, possibly represent ing a mild nonspecific enteritis. 5. No intraperitoneal free air is identified. There is no pneumatosis intestinalis or portal venous g as. 6. Cholelithiasis. 7. Diverticulosis of the remaining colon without CT evidence of acute diverticulitis. ACT 112: Negative or not required by law. Electronically signed by: Vinny Smith M.D. 11/01/2024 2:59 PM
[2024-11-01] MEDS ORDERED: GLUCOSE 40% GEL 15 GM TUBE PO PRN (15:14)
[2024-11-01] MEDS ORDERED: GLUCOSE 10 TAB/TUBE PO PRN (15:14)
[2024-11-01] MEDS ORDERED: ONDANSETRON INJ 2 MG/ML 2 ML VIAL IV PRN (15:14)
[2024-11-01] MEDS ORDERED: DEXTROSE 50% 50 ML SYRINGE IV PRN (15:14)
[2024-11-01] MEDS ORDERED: GLUCAGON FOR INJ 1 MG VIAL SQ PRN (15:14)
[2024-11-01] MEDS ORDERED: ACETAMINOPHEN 325 MG TAB PO PRN (15:14)
[2024-11-01] MEDS ORDERED: CARBOHYDRATES FOR HYPOGLYCEMIA PO PRN (15:14)
[2024-11-01] MEDS ORDERED: busPIRone 5 MG TAB PO PRN (15:14)
[2024-11-01] MEDS: SODIUM CHLORIDE 0.9% 1,000 ML IV SCH (16:23)
[2024-11-01 17:31] LABS: Anion Gap 9.0 (3-11); Blood Urea Nitrogen 43.0 mg/dl (6-23); Calcium 8.9 mg/dl (8.6-10.3); Carbon Dioxide 24.0 mmol/L (21-32); Chloride 97.0 mmol/L (98-107); Creatinine Clr Calc Pharmacy 24.2 ml/min; Glucose 92.0 mg/dl (70-99(Fasting)); Magnesium 2.0 mg/dl (1.7-2.4); Potassium 5.0 mmol/L (3.5-5.1); Sodium 130.0 mmol/L (136-145)
[2024-11-01] MEDS: INSULIN ASPART PER UNIT CHARGE SC SCH (17:32)
[2024-11-01] MEDS: HEPARIN SOD 5,000 UNIT/0.5 ML VIAL SQ SCH (20:21)
[2024-11-02 07:43] LABS: Hematocrit (blood only) 29.5 % (37.0-47.0); Hemoglobin 9.9 g/dl (12.0-16.0); Mean Corpuscular Hemoglobin 30.6 pg (25.0-34.0); Mean Corpuscular Volume 91.0 fL (80.0-100.0); Platelet Count 396 K/uL (130-400); RDW Standard Deviation 43.0 fL (36.4-46.3); Red Blood Count 3.24 M/uL (4.20-5.40); White Blood Count 8.53 K/ul (4.8-10.8)
[2024-11-02 08:12] LABS: Alanine Aminotransferase 58.0 U/L (7-52); Albumin Globulin Ratio 1.1 (0.9-2); Alkaline Phosphatase 90.0 U/L (34-104); Anion Gap 7.0 (3-11); Bilirubin,Total 0.3 mg/dl (0.2-1.0); Blood Urea Nitrogen 34.0 mg/dl (6-23); Calcium 8.2 mg/dl (8.6-10.3); Carbon Dioxide 22.0 mmol/L (21-32); Chloride 104.0 mmol/L (98-107); Creatinine Clr Calc Pharmacy 36.0 ml/min; Globulin 2.9 gm/dl (2.5-4.0); Glucose 107.0 mg/dl (70-99(Fasting)); Magnesium 1.6 mg/dl (1.7-2.4); Potassium 5.1 mmol/L (3.5-5.1); Sodium 133.0 mmol/L (136-145); Total Protein 6.0 gm/dl (6.0-8.3)
[2024-11-02] MEDS: CYANOCOBALAMIN (B-12) 500 MCG TABLET PO SCH (08:42)
[2024-11-02] MEDS: ATORVASTATIN 40 MG TAB PO SCH (08:42)
[2024-11-02] MEDS: ASPIRIN 81 MG ECTAB PO SCH (08:43)
[2024-11-02] MEDS: CITALOPRAM 40 MG TAB PO SCH (08:43)
[2024-11-02] MEDS: FLUTICASONE PROPIONATE NA SPR 16 GM BTL SCH (10:16)
--- NOTE | 2024-11-02 11:14 | Nephrology Consultation ---
Date of Consultation November 02, 2024 Assessment & Plan (1) JOSE MARTIN (acute kidney injury): Improved nonoliguric stage III acute kidney injury, consistent with prerenal JOSE MARTIN. Presented with lactate 3.6 which has corrected with supportive care and holding metformin. Baseline creatinine 0.8-0.9. Avoid thiazide diuretics moving forward; may need only 1 antihypertensive at discharge if that Daily basic metabolic panel while in house agree w/ trial further gentle hydration [facility] causes of JOSE MARTIN/hyponatremia via [employer]Text; we are in agreement. (2) Hyponatremia: Based on her response to IV fluids, this is hypovolemic hypotonic hyponatremia improving at an appropriate rate. Target is sodium in the bloodstream no more than 139 tomorrow. Urine sodium 16 urine osmolality 247 urine specific gravity 1.008. Labs consistent with hypovolemic hyponatremia in a patient on long-term thiazide and w/ some reduced food intake. Daily basic metabolic panel Maintain K of 4 and mag of 2 Would avoid thiazide and thiazide like diuretics moving forward (3) Hypomagnesemia: Magnesium 1.1 on presentation; up to 1.6 today with aggressive supplementation >>> Started standing bid oral magnesium chloride which is more likely to be absorbed Monitor magnesium daily while in house and periodically as outpatient (4) Hypotension: Ongoing hypotension. Continue to hold lisinopril hydrochlorothiazide combo pill Low threshold to give another liter of normal saline Monitor ostomy output closely (5) Hyperkalemia: elevated K levels improving she's eating a fair amount of high K foods > tomoatoes, oj, bananas, potatoes; for now no chnages to tbut encourage po >hold RAASi and metformin >Daily BMP >continue hydration History of Present Illness Reason for Consultation: JOSE MARTIN and hyponatremia Requesting Physician: Dr. Enriquez Attending Physician: Musa Paez MD History of Present Illness 64-year-old female whom I am asked to evaluate for JOSE MARTIN and hyponatremia was admitted yesterday with same with hypotension in the setting of elevated lactic acid and recent bowel surgery after presenting with dizziness and blurry vision. Past medical history includes type 2 diabetes, hyperlipidemia, hypertension, osteoarthritis, depression and anxiety. Also with recurrent diverticulitis status post bowel resection with ileostomy placement October 14, 2024 complicated by postop ileus (admitted to [facility] October 14 and then readmitted there October 23 to with small bowel obstruction). Creatinine on first discharge was 0.6 and 0.7 at second. Baseline creatinine 0.8-0.9. She takes a lisinopril/hydrochlorothiazide combination pill as an outpatient as well as potassium supplements and metformin. She had 2 L normal saline in the ER. Presenting creatinine of 3.4 is at 1.6 today which is what it was on her October 23 assay in our health system. Presenting sodium 127 yesterday at 1300, up to 133 this morning on a.m. labs. Potassium 5.8 yesterday to 5.1 today. Magnesium 1.1 on presentation to 1.6 today. Drinks 70 ounces of water daily. Denies nausea vomiting, fever chills, abdominal pain changes/increases in ostomy output, sick contacts, cough shortness of breath dysuria. Tells me that on arrival home after October for discharge, she felt well for a few days but then began having lightheadedness. Allergies Allergy/AdvReac Type Severity Reaction Status Date / Time No Known Allergies Allergy Unverified 11/01/24 11:04 Home Medications Medication Instructions Recorded Confirmed Type aspirin 81 mg tablet,delayed 81 mg PO DAILY 11/21/19 11/01/24 History release atorvastatin 40 mg tablet 40 mg PO DAILY 11/21/19 11/01/24 History citalopram 40 mg tablet 40 mg PO DAILY 11/21/19 11/01/24 History metformin 850 mg tablet 850 mg PO BID 11/21/19 11/01/24 History potassium chloride 10 mEq 10 meq PO DAILY 11/21/19 11/01/24 History capsule,extended release lisinopril 20 1 tab PO DAILY 10/23/24 11/01/24 History mg-hydrochlorothiazide 25 mg tablet buspirone 5 mg tablet 5 mg PO BID PRN Anxiety 11/01/24 11/01/24 History cyanocobalamin (vitamin B-12) 1,000 mcg PO DAILY 11/01/24 11/01/24 History 1,000 mcg tablet (Vitamin B-12) fluticasone propionate 50 2 spray intranasal QAM 11/01/24 11/01/24 History mcg/actuation nasal spray,suspension multivitamin with [id number]-KA-pssoid 1 tab PO DAILY 11/01/24 11/01/24 History 400 mcg-120 mg tablet (One Daily Women 50 Plus) Patient History Medical History Small bowel obstruction Endometriosis GERD (gastroesophageal reflux disease) Kidney stones Depression Diverticulosis Diabetes mellitus Hyperlipidemia Hypertension Surgical History History of hysterectomy History of bowel resection robotic low anterior resection with coloproctostomy, intraop flex sigmoidoscopy, diverting loop ileostomy 10/14/2024 History of bilateral knee replacement Family History Father Diabetes Stroke Hypertension Social History Smoking Status: Never smoker Hx Alcohol Use: No Hx Substance Use: No Preferred Language: Norwegian Communication Ability: Effective [employer] Forms [employer] Required: No Beliefs That Will Affect Care: Denominational marital status: Single Current Living Situation: Family Current Living Situation Comment: mom and brother current occupational status: retired Feels Safe at Home: Yes Safety Concerns: Feels Safe At This Time Assistive Devices: None Review of Systems 2 Review of Systems: All systems reviewed & are unremarkable except as noted in HPI & below Physical Exam 2 Constitutional: well developed, well nourished, + obese and cooperative; no acute distress Eyes: EOM intact bilaterally ENMT: Ears: no external ear abnormality Nose: no external nose abnormality Mouth: + dry oral mucous membranes Neck: no nuchal rigidity Respiratory: normal respiratory effort Auscultation: + diminished lung sounds Gastrointestinal (Abdomen): Inspection/Auscultation: normal bowel sounds and + abdominal surgical drain present (ostomy RLQ) Percussion/Palpation: abdomen soft; abdomen nontender Musculoskeletal: Extremities: strength 5/5 throughout Skin: no rashes, warm and dry Neurologic: weaver, fluent speech, no tremor Psychiatric: Orientation: alert and oriented x 3 Results & Data Vital Signs (Past 12 Hours) Vital Signs Temp Pulse Pulse Resp BP BP Pulse Ox 11/02/24 07:47 78 11/02/24 07:37 36.7 C 77 16 94/60 L 97 11/02/24 03:04 36.6 C 79 16 107/69 96 O2 Del Method 11/02/24 07:47 11/02/24 07:37 Room Air 11/02/24 03:04 Room Air Laboratory Results 11/02/24 06:46 11/02/24 06:46
--- NOTE | 2024-11-02 13:00 | Hospitalist Progress Note ---
Date of Service November 02, 2024 Assessment & Plan (1) Hypotension: (2) History of bowel resection: (3) Elevated lactic acid level: (4) Hyponatremia: (5) Acute kidney injury: (6) Hypomagnesemia: (7) Transaminitis: (8) Diabetes mellitus: (9) Hypertension: (10) Hyperlipidemia: (11) Depression: Plan 64 year old female with PMH significant for type 2 diabetes, dyslipidemia, hypertension, osteoarthritis, depression with anxiety, and history of recurrent diverticulitis s/p resection with ileostomy placement on 10/14/2024 with post op ileus and then recent SBO on 10/23/2024 who presented to the ED on 11/01/2024 with dizziness and lightheadedness and is being admitted for hypotension, electrolyte abnormalities, and JOSE MARTIN. Hypotension Patient presented to ED with dizziness x1 day Initial BPs 80s/50s with HRs in the 90s Blood pressure improved with IV fluids Hold antihypertensives for now Monitor blood pressure closely History of bowel resection Elevated lactic acid level-resolved Suspected mild Enteritis History of recurrent diverticulitis s/p resection with ileostomy placement on 10/14/2024 with post op ileus and then recent SBO on 10/23/2024 --CT ABD:There is postsurgical change from rectosigmoid resection as well as ileal resection with double barrel ileostomy in the right lower quadrant. There are mildly distended loops of small bowel in left upper quadrant with no transition point identified and no evidence of high-grade obstruction. The degree of distention has significantly improved from 10/23/2024 and this may represent a mild ileus. Clinical correlation will be essential. There are mildly thick walled loops of small bowel in the right lower quadrant, possibly representing a mild nonspecific enteritis. No intraperitoneal free air is identified. There is no pneumatosis intestinalis or portal venous gas. Cholelithiasis. Diverticulosis of the remaining colon without CT evidence of acute diverticulitis. --Blood cultures: negative to date --Check Stool studies --Monitor Volume status Hypovolemic hypotonic hyponatremia Sodium levels improving Plan to discontinue HCTZ permanently Monitor sodium levels Acute kidney injury Likely prerenal, lisinopril, hydrochlorothiazide could be contributing as well Denies NSAIDs use Cr:3.3>2.3>1.5 Renal function improving Continue IV fluids Appreciate nephrology input Hyperkalemia Likely due to JOSE MARTIN Resolved Monitor Hypomagnesemia Replete and monitor Transaminitis AST 41, ALT 922, alk phos 129 on admission Likely due to dehydration Trended down Type 2 diabetes Hold home metformin while inpatient BSG ACHS and SSI May need alternative medications on discharge if renal function does not improve Update HbA1c Hypertension Hold lisinopril due to hypotension, JOSE MARTIN Plan to discontinue hydrochlorothiazide permanently Monitor and adjust medications as needed Hyperlipidemia Continue atorvastatin Depression Continue citalopram and buspar DVT Px: SQ Heparin Code Status: FULL CODE PCP: Harsha Last Disposition: Expected to discharge home in stable Admission and Anticipated Discharge Date Admission Date: November 01, 2024 Subjective Patient is seen and examined at bedside States feeling a lot better today Dizziness resolved Admits to have liquid bowel movements since ileostomy Denies any chest pain, dyspnea, dysuria, hematuria, abdominal pain Eager to get discharged Review of Systems Review of Systems: All systems reviewed & are unremarkable except as noted in Subjective Physical Exam Physical Exam: Physical Exam: Vitals signs as noted above General Appearance:overweight, no apparent distress Head: normocephalic, Atraumatic Eyes: normal inspection, EOMI Neck: supple, Trachea midline Respiratory/Chest: Normal breath sounds, CTA, No accessory muscle use Cardiovascular: S1, S2, No murmur Abdomen/GI:Soft, Non tender, + ileostomy, bowel sounds present Extremities/Musculoskeletal:normal inspection, no edema Neurologic/Psych:AAOX3, grossly no focal neurological deficits Skin: normal color, warm Results & Data Results & Data Vital Signs (Past 12 Hours) Vital Signs Temp Pulse Pulse Resp BP BP Pulse Ox 11/02/24 11:29 36.8 C 88 18 98/61 L 97 11/02/24 07:47 78 11/02/24 07:37 36.7 C 77 16 94/60 L 97 11/02/24 03:04 36.6 C 79 16 107/69 96 O2 Del Method 11/02/24 11:29 Room Air 11/02/24 07:47 11/02/24 07:37 Room Air 11/02/24 03:04 Room Air Laboratory Results Short CBC 11/02/24 Range/Units 06:46 WBC 8.53 (4.8-10.8) K/ul Hgb 9.9 L (12.0-16.0) g/dl Hct 29.5 L (37.0-47.0) % Plt Count 396 (130-400) K/uL BMP 11/01/24 11/02/24 16:47 06:46 Sodium 130 L 133 L Potassium 5.0 5.1 Chloride 97 L 104 Carbon Dioxide 24 22 BUN 43 H 34 H Creatinine 2.37 H D 1.59 H D Glucose 92 107 H Calcium 8.9 8.2 L Liver Function 11/02/24 Range/Units 06:46 Total Bilirubin 0.3 (0.2-1.0) mg/dl AST 29 (13-39) U/L ALT 58 H (7-52) U/L Alkaline Phosphatase 90 (34-104) U/L Albumin 3.1 L (3.4-5.0) gm/dl Urine 11/01/24 Range/Units 12:37 Urine Color Yellow Urine Appearance Clear (Clear) Urine pH 8.5 H (4.5-7.5) Ur Specific [place] 1.008 (1.000-1.030) Urine Protein Negative (Negative) Urine Glucose (UA) Negative (Negative)
[2024-11-02] MEDS: SODIUM CHLORIDE 0.9% 1,000 ML IV SCH (13:16)
[2024-11-02] MEDS: MAGNESIUM SULFATE / D5W 1 GM/100 ML BAG IV ONE (13:16)
[2024-11-02 15:07] LABS: Cdiff Toxin B Gene (2yr or >) Negative Cdiff Gene (Neg)
[2024-11-02 15:38] LABS: Adenovirus F 40/41 PCR Not Detected (NotDetected); Campylobacter PCR Not Detected (NotDetected); Enteroaggregative E.coli(EAEC) Not Detected (NotDetected); Shiga-like Toxin E.coli (STEC) Not Detected (NotDetected); Vibrio species PCR Not Detected (NotDetected)
[2024-11-02] MEDS: MAGNESIUM CHLORIDE W/CALCIUM 64MG DELAYED REL TAB PO SCH (20:16)
[2024-11-03 04:15] VITALS: RESP 16
[2024-11-03 06:42] LABS: Hematocrit (blood only) 29.4 % (37.0-47.0); Hemoglobin 9.4 g/dl (12.0-16.0); Mean Corpuscular Hemoglobin 29.7 pg (25.0-34.0); Mean Corpuscular Volume 92.7 fL (80.0-100.0); Platelet Count 371 K/uL (130-400); RDW Standard Deviation 43.7 fL (36.4-46.3); Red Blood Count 3.17 M/uL (4.20-5.40); White Blood Count 9.58 K/ul (4.8-10.8)
[2024-11-03 07:16] LABS: Hemoglobin A1C 6.6 % (4.5-5.6)
[2024-11-03 07:18] LABS: Anion Gap 7.0 (3-11); Bilirubin,Total 0.3 mg/dl (0.2-1.0); Calcium 8.5 mg/dl (8.6-10.3); Carbon Dioxide 19.0 mmol/L (21-32); Chloride 107.0 mmol/L (98-107); Magnesium 1.5 mg/dl (1.7-2.4); Potassium 4.7 mmol/L (3.5-5.1); Sodium 133.0 mmol/L (136-145)
[2024-11-03 07:24] LABS: Alanine Aminotransferase 49.0 U/L (7-52); Albumin Globulin Ratio 1.2 (0.9-2); Alkaline Phosphatase 87.0 U/L (34-104); Blood Urea Nitrogen 25.0 mg/dl (6-23); Creatinine Clr Calc Pharmacy 53.5 ml/min; Globulin 2.8 gm/dl (2.5-4.0); Glucose 95.0 mg/dl (70-99(Fasting)); Total Protein 6.1 gm/dl (6.0-8.3)
[2024-11-03 07:26] VITALS: TEMP 97.5; O2SAT 98
[2024-11-03] MEDS: MAGNESIUM SULFATE / D5W 1 GM/100 ML BAG IV SCH (09:20)
--- NOTE | 2024-11-03 10:44 | Nephrology Progress Note ---
Date of Service November 03, 2024 Assessment & Plan (1) JOSE MARTIN (acute kidney injury): Plan: Resolving nonoliguric stage III acute kidney injury, consistent with prerenal JOSE MARTIN. Presented with lactate 3.6 which has corrected with supportive care and holding metformin. Baseline creatinine 0.8-0.9. Avoid thiazide diuretics moving forward Daily basic metabolic panel while in house agree w/ trial further gentle hydration Nephrology discharge recommendations Diagnosis: Prerenal acute kidney injury nonoliguric stage III; peak creatinine 3.4; baseline creatinine 0.8-0.9; November 03 creatinine 1.1 Medications: Do not resume lisinopril hydrochlorothiazide at discharge (though may possibly resume it later) Do not resume metformin at discharge (though may possibly resume later) Continue magnesium chloride 64 mg twice daily at d/c Follow-up labs and other care: Basic metabolic panel and magnesium Monday and this week and Monday/ next week to be ordered by PCP - Nurse visit pls w/ PCP for BP check with EVERY lab visit Basic metabolic panel, magnesium, urine osmolality, serum osmolality, urine electrolytes, urinalysis with microscopy, albumin to creatinine ratio to be ordered by nephro nurse and done no more than 3 days before neph appointment Aim for 80 g daily protein intake -Contact PCP office immediately if recurrent lightheadedness and generalized weakness or marked increases in ostomy output Follow-up appointments: PCP hospital discharge within 7 to 10 days [facility] [place] appointment with any physician provider in 2 to 3 weeks nephrology Care coordinated w/ Dr Jeannine salgado, discharge disposition and follow-up labs/BP checks in person and via TText; we are in agreement. (2) Hyponatremia: Plan: Based on her response to IV fluids, this is hypovolemic hypotonic hyponatremia improving at an appropriate rate. Target is sodium in the bloodstream no more than 139 tomorrow. Urine sodium 16 urine osmolality 247 urine specific gravity 1.008. Labs consistent with hypovolemic hyponatremia in a patient on long-term thiazide and w/ some reduced food intake. Daily basic metabolic panel Maintain K of 4 and mag of 2 Would avoid thiazide and thiazide like diuretics moving forward (3) Hypomagnesemia: Plan: Magnesium 1.1 on presentation; up to 1.5 today with aggressive supplementation continue standing bid oral magnesium chloride which is more likely to be absorbed Monitor magnesium daily while in house and periodically as outpatient (4) Hypotension: Plan: Ongoing RELATIVE hypotension. Continue to hold lisinopril hydrochlorothiazide combo pill Monitor ostomy output closely (5) Hyperkalemia: Plan: elevated K levels improving she's eating a fair amount of high K foods > tomoatoes, oj, bananas, potatoes; for now no chnages to tbut encourage po >hold RAASi and metformin >Daily BMP >continue hydration in house Admission and Anticipated Discharge Date Admission Date: November 01, 2024 Subjective No acute interval clinical events; Ambulating to bathroom without presyncopal or orthostatic symptoms. no edema, no sob, no increase ostomy OP; does not check blood pressure at home Review of Systems 2 Review of Systems: All systems reviewed & are unremarkable except as noted in Subjective Physical Exam 2 Constitutional: well developed, well nourished, + obese and cooperative; no acute distress ( Tearful at times talking MS extended hospital stays past mo.) Eyes: EOM intact bilaterally ENMT: Ears: no external ear abnormality Nose: no external nose abnormality Mouth: + dry oral mucous membranes Neck: no nuchal rigidity Respiratory: normal respiratory effort Auscultation: + diminished lung sounds Gastrointestinal (Abdomen): Inspection/Auscultation: normal bowel sounds and + abdominal surgical drain present (ostomy RLQ) Percussion/Palpation: abdomen soft; abdomen nontender Musculoskeletal: Extremities: strength 5/5 throughout Skin: no rashes, warm and dry Psychiatric: Orientation: alert and oriented x 3 Results & Data Vital Signs (Past 12 Hours) Vital Signs Temp Pulse Pulse Resp BP BP Pulse Ox 11/03/24 07:52 67 11/03/24 07:26 36.4 C L 80 16 107/72 98 11/03/24 02:16 36.6 C 74 16 113/71 97 11/02/24 23:29 88 11/02/24 23:00 36.8 C 75 18 117/73 98 O2 Del Method 11/03/24 07:52 11/03/24 07:26 Room Air 11/03/24 02:16 Room Air 11/02/24 23:29 11/02/24 23:00 Room Air Laboratory Results 11/03/24 06:13 11/03/24 06:13
--- NOTE | 2024-11-03 11:40 | Hospitalist Progress Note ---
Date of Service November 03, 2024 Assessment & Plan (1) Hypotension: (2) History of bowel resection: (3) Elevated lactic acid level: (4) Hyponatremia: (5) Acute kidney injury: (6) Hypomagnesemia: (7) Transaminitis: (8) Diabetes mellitus: (9) Hypertension: (10) Hyperlipidemia: (11) Depression: Plan 64 year old female with PMH significant for type 2 diabetes, dyslipidemia, hypertension, osteoarthritis, depression with anxiety, and history of recurrent diverticulitis s/p resection with ileostomy placement on 10/14/2024 with post op ileus and then recent SBO on 10/23/2024 who presented to the ED on 11/01/2024 with dizziness and lightheadedness and is being admitted for hypotension, electrolyte abnormalities, and JOSE MARTIN. Hypotension Patient presented to ED with dizziness x1 day Initial BPs 80s/50s with HRs in the 90s Blood pressure improved with IV fluids Continue to hold antihypertensives until follow-up with primary care physician Monitor blood pressure closely Dizziness resolved Plan to be discharged home today History of bowel resection Elevated lactic acid level-resolved Suspected mild Enteritis History of recurrent diverticulitis s/p resection with ileostomy placement on 10/14/2024 with post op ileus and then recent SBO on 10/23/2024 --CT ABD:There is postsurgical change from rectosigmoid resection as well as ileal resection with double barrel ileostomy in the right lower quadrant. There are mildly distended loops of small bowel in left upper quadrant with no transition point identified and no evidence of high-grade obstruction. The degree of distention has significantly improved from 10/23/2024 and this may represent a mild ileus. Clinical correlation will be essential. There are mildly thick walled loops of small bowel in the right lower quadrant, possibly representing a mild nonspecific enteritis. No intraperitoneal free air is iden tified. There is no pneumatosis intestinalis or portal venous gas. Cholelithiasis. Diverticulosis of the remaining colon without CT evidence of acute diverticulitis. --Blood cultures: negative to date -- Stool PCR, C. difficile negative --Monitor Volume status, electrolytes Hypovolemic hypotonic hyponatremia Plan to discontinue HCTZ permanently Monitor sodium levels Sodium levels improved to 133 today Advised to increase protein intake Acute kidney injury Likely prerenal, lisinopril, hydrochlorothiazide could be contributing as well Denies NSAIDs use Cr:3.3>2.3>1.5>1.0 Received IV fluids Appreciate nephrology input Avoid nephrotoxic agents as able Hyperkalemia Likely due to JOSE MARTIN, potassium supplement Continue to hold potassium supplement Resolved Monitor Hypomagnesemia Replete and monitor Transaminitis AST 41, ALT 922, alk phos 129 on admission Likely due to dehydration Trended down Type 2 diabetes Hold home metformin while inpatient HbA1c 6.6 BSG ACHS and SSI May need alternative medications on discharge if renal function does not improve Hypertension Hold lisinopril due to hypotension, JOSE MARTIN Plan to discontinue hydrochlorothiazide permanently Monitor and adjust medications as needed Blood pressure stable off antihypertensives Hyperlipidemia Continue atorvastatin Depression Continue citalopram and buspar DVT Px: SQ Heparin Code Status: FULL CODE PCP: Harsha Last Disposition: Home today Admission and Anticipated Discharge Date Admission Date: November 01, 2024 Subjective Patient is seen and examined at bedside No new complaints today No recurrence of dizziness Denies any chest pain, dyspnea, dysuria, hematuria, abdominal pain Discussed with nephrology today Plan to be discharged home today Review of Systems Review of Systems: All systems reviewed & are unremarkable except as noted in Subjective Physical Exam Physical Exam: Physical Exam: Vitals signs as noted above General Appearance:overweight, no apparent distress Head: normocephalic, Atraumatic Eyes: normal inspection, EOMI Neck: supple, Trachea midline Respiratory/Chest: Normal breath sounds, CTA, No accessory muscle use Cardiovascular: S1, S2, No murmur Abdomen/GI:Soft, Non tender, + ileostomy, bowel sounds present Extremities/Musculoskeletal:normal inspection, no edema Neurologic/Psych:AAOX3, grossly no focal neurological deficits Skin: normal color, warm Results & Data Results & Data Vital Signs (Past 12 Hours) Vital Signs Temp Pulse Pulse Resp BP BP Pulse Ox 11/03/24 07:52 67 11/03/24 07:26 36.4 C L 80 16 107/72 98 11/03/24 02:16 36.6 C 74 16 113/71 97 O2 Del Method 11/03/24 07:52 11/03/24 07:26 Room Air 11/03/24 02:16 Room Air Laboratory Results Short CBC 11/03/24 Range/Units 06:13 WBC 9.58 (4.8-10.8) K/ul Hgb 9.4 L (12.0-16.0) g/dl Hct 29.4 L (37.0-47.0) % Plt Count 371 (130-400) K/uL BMP 11/03/24 06:13 Sodium 133 L Potassium 4.7 Chloride 107 Carbon Dioxide 19 L BUN 25 H Creatinine 1.07 D Glucose 95 Calcium 8.5 L Liver Function 11/03/24 Range/Units 06:13 Total Bilirubin 0.3 (0.2-1.0) mg/dl AST 25 (13-39) U/L ALT 49 (7-52) U/L Alkaline Phosphatase 87 (34-104) U/L Albumin 3.3 L (3.4-5.0) gm/dl
--- NOTE | 2024-11-03 12:03 | Discharge Summary ---
Date of Service November 03, 2024 Admission HPI Per Admitting Provider 64 year old female with PMH significant for type 2 diabetes, dyslipidemia, hypertension, osteoarthritis, depression with anxiety, and history of recurrent diverticulitis s/p resection with ileostomy placement on 10/14/2024 with post op ileus and then recent SBO on 10/23/2024 who presented to the ED on 11/01/2024 with dizziness x1 day. Patient reports she started feeling dizzy yesterday. She notes blurry vision upon standing but denies sensation of room spinning, syncope or near syncope. This continued into today, which is what prompted her to seek evaluation. She notes adequate hydration where she drinks about 68oz of water per day. She denies N/V, increased output from her ostomy, recent sick contacts. She takes her blood pressure at home but cannot remember what her readings were prior to coming in. Denies fevers, chills, chest pain, SOB, abdominal pain, dysuria, weakness. She lives at home with her mom and brother. Admission Exam Per Admitting Provider General/Psych: WD/WN, sitting up in bed, NAD, conversing easily Head: normocephalic, atraumatic Eyes: normal inspection, PERRL, conjunctivae pink, anicteric sclerae ENT: external ear and nose normal, oropharynx normal Neck: normal visual inspection, trachea midline Respiratory: normal respiratory effort, lungs clear to auscultation, no wheeze/rales/rhonchi, no accessory muscle use Cardiovascular: regular rate and rhythm, no murmur/rub/gallop, no JVD Extremities: no cyanosis or clubbing, normal peripheral pulses, no BLE edema Abdomen/GI: normal bowel sounds, soft, nontender, no hepatosplenomegaly, RLQ ileostomy in place Neurologic/MSK: A+Ox3, motor strength 5/5, moves all extremities Skin: no rashes, normal color, warm and dry, two lap surgical incisions at RLQ and LUQ with surgical glue c/d/i Principal Diagnosis Hyponatremia Acute kidney injury Hyperkalemia Hypotension Hypomagnesemia Discharge Data Allergies Allergy/AdvReac Type Severity Reaction Status Date / Time No Known Allergies Allergy Unverified 11/01/24 11:04 Consultations 11/01/24 12:54 ED Decision to Admit Stat 11/01/24 16:01 Consult Nephrology Routine Procedures Performed Laboratory Results WBC 9.58 K/ul (4.8-10.8) 11/03/24 06:13 RBC 3.17 M/uL (4.20-5.40) L 11/03/24 06:13 Hgb 9.4 g/dl (12.0-16.0) L 11/03/24 06:13 Hct 29.4 % (37.0-47.0) L 11/03/24 06:13 MCV 92.7 fL (80.0-100.0) 11/03/24 06:13 MCH 29.7 pg (25.0-34.0) 11/03/24 06:13 MCHC 32.0 g/dL (32.0-36.0) 11/03/24 06:13 RDW Std Deviation 43.7 fL (36.4-46.3) 11/03/24 06:13 RDW Coeff of Cammy 12.8 % (11.5-14.5) 11/03/24 06:13 Plt Count 371 K/uL (130-400) 11/03/24 06:13 MPV 9.5 fL (9.4-12.4) 11/03/24 06:13 Immature Gran % (Auto) 3.9 % 11/01/24 10:23 Neut % (Auto) 62.2 % 11/01/24 10:23 Lymph % (Auto) 24.2 % 11/01/24 10:23 [place] % (Auto) 7.9 % 11/01/24 10:23 Eos % (Auto) 1.2 % 11/01/24 10:23 Baso % (Auto) 0.6 % 11/01/24 10:23 Neut # (Auto) 6.50 K/uL (1.40-6.50) 11/01/24 10:23 Lymph # (Auto) 2.53 K/uL (1.20-3.40) 11/01/24 10:23 [place] # (Auto) 0.83 K/uL (0.11-0.59) H 11/01/24 10:23 Eos # (Auto) 0.13 K/uL (0.00-0.50) 11/01/24 10:23 Baso # (Auto) 0.06 K/uL (0.00-0.20) 11/01/24 10:23 Immature Gran # (Auto) 0.41 K/uL (0.01-0.20) H 11/01/24 10:23 PT 10.6 Seconds (9.0-12.0) 11/01/24 10:23 INR 1.0 (0.9-1.1) 11/01/24 10:23 APTT 26 Seconds (21-31) 11/01/24 10:23 PTT Ratio 1.0 11/01/24 10:23 Sodium 133 mmol/L (136-145) L 11/03/24 06:13 Potassium 4.7 mmol/L (3.5-5.1) 11/03/24 06:13 Chloride 107 mmol/L (98-107) 11/03/24 06:13 Carbon Dioxide 19 mmol/L (21-32) L 11/03/24 06:13 Anion Gap 7 (3-11) 11/03/24 06:13 BUN 25 mg/dl (6-23) H 11/03/24 06:13 Creatinine 1.07 mg/dl (0.6-1.2) D 11/03/24 06:13 Est Cr Clr Drug Dosing 53.5 ml/min 11/03/24 06:13 eGFR 58.73 11/03/24 06:13 BUN/Creatinine Ratio 23.4 (10-20) H 11/03/24 06:13 Glucose 95 mg/dl (70-99(Fasting)) 11/03/24 06:13 POC Glucose 107 mg/dl (70-99) H 11/03/24 08:23 Estimat Average Glucose 143 mg/dl 11/03/24 06:13 Hemoglobin A1c 6.6 % (4.5-5.6) H 11/03/24 06:13 Osmolality 284 mOsm/kg (280-300) 11/01/24 10:23 Lactate 1.5 mmol/L (0.4-2.0) 11/01/24 16:47 Calcium 8.5 mg/dl (8.6-10.3) L 11/03/24 06:13 Phosphorus 3.7 mg/dl (2.5-4.9) 11/03/24 06:13 Magnesium 1.5 mg/dl (1.7-2.4) L 11/03/24 06:13 Total Bilirubin 0.3 mg/dl (0.2-1.0) 11/03/24 06:13 AST 25 U/L (13-39) 11/03/24 06:13 ALT 49 U/L (7-52) 11/03/24 06:13 Alkaline Phosphatase 87 U/L (34-104) 11/03/24 06:13 Troponin I High Sens 3.7 pg/ml (0-14) 11/01/24 10:23 Total Protein 6.1 gm/dl (6.0-8.3) 11/03/24 06:13 Albumin 3.3 gm/dl (3.4-5.0) L 11/03/24 06:13 Globulin 2.8 gm/dl (2.5-4.0) 11/03/24 06:13 Albumin/Globulin Ratio 1.2 (0.9-2) 11/03/24 06:13 Procalcitonin 0.33 ng/ml (0-0.5) 11/01/24 10:23 TSH 1.590 uIu/ml (0.300-4.500) 11/01/24 10:23 Urine Color Yellow 11/01/24 12:37 Urine Appearance Clear (Clear) 11/01/24 12:37 Urine pH 8.5 (4.5-7.5) H 11/01/24 12:37 Ur Specific [place] 1.008 (1.000-1.030) 11/01/24 12:37 Urine Protein Negative (Negative) 11/01/24 12:37 Urine Glucose (UA) Negative (Negative) 11/01/24 12:37 Urine Ketones Negative (Negative) 11/01/24 12:37 Urine Blood Negative (Negative) 11/01/24 12:37 Urine Nitrite Negative (Negative) 11/01/24 12:37 Urine Bilirubin Negative (Negative) 11/01/24 12:37 Urine Urobilinogen Negative (Negative) 11/01/24 12:37 Ur Leukocyte Esterase 1+ (Negative) H 11/01/24 12:37 Urine WBC (Auto) 6-10 /hpf (0-5) H 11/01/24 12:37 Urine RBC (Auto) 0-2 /hpf (0-2) 11/01/24 12:37 U Hyaline Cast (Auto) 3-5 /lpf (0-2) H 11/01/24 12:37 U Epithel Cells (Auto) 3-5 /hpf (0-2) H 11/01/24 12:37 Urine Bacteria (Auto) None Seen (None Seen) 11/01/24 12:37 Urine Osmolality 247 mOsm/kg (500-800) L 11/01/24 12:37 Ur Random Sodium 16 mmol/L 11/01/24 12:37 Urine Comment 11/01/24 12:37 Stl C. cayetanensis PCR Not Detected (NotDetected) 11/02/24 14:08 Stool Rotavirus A PCR Not Detected (NotDetected) 11/02/24 14:08 Stl Adenov F 40/41 PCR Not Detected (NotDetected) 11/02/24 14:08 Stool Astrovirus (PCR) Not Detected (NotDetected) 11/02/24 14:08 Stool Campylobacter PCR Not Detected (NotDetected) 11/02/24 14:08 Stl C. diff Tox B Gene Negative Cdiff Gene (Neg) 11/02/24 14:08 Stl C. diff 027-NAP1-BI NEGATIVE 11/02/24 14:08 Stool Cryptosporidium PCR Not Detected (NotDetected) 11/02/24 14:08 Stl E.coli Shiga Tox PCR Not Detected (NotDetected) 11/02/24 14:08 Stl Enterotoxigenic E PCR Not Detected (NotDetected) 11/02/24 14:08 Stool EPEC (PCR) Not Detected (NotDetected) 11/02/24 14:08 Stool EAEC (PCR) Not Detected (NotDetected) 11/02/24 14:08 Stl E. histolytica PCR Not Detected (NotDetected) 11/02/24 14:08 Stool Giardia Lamblia PCR Not Detected (NotDetected) 11/02/24 14:08 Stool Salmonella PCR Not Detected (NotDetected) 11/02/24 14:08 Stool Sapovirus (PCR) Not Detected (NotDetected) 11/02/24 14:08 Stl P. shigelloides PCR Not Detected (NotDetected) 11/02/24 14:08 Stl Shigella/EIEC PCR Not Detected (NotDetected) 11/02/24 14:08 St Y.enterocolitica PCR Not Detected (NotDetected) 11/02/24 14:08 Stool Vibrio (PCR) Not Detected (NotDetected) 11/02/24 14:08 Stl Vibrio cholerae PCR Not Detected (NotDetected) 11/02/24 14:08 Stl Norovirus GI/GII PCR Not Detected (NotDetected) 11/02/24 14:08 Impressions Chest X-Ray 11/01/24 10:32 XR chest 1V portable CLINICAL HISTORY: Sepsis. COMPARISON STUDY: Chest radiograph August 20, 2023. FINDINGS: Lung volumes are normal. Lungs are clear. There is no pneumothorax or pleural effusion. Cardiac size is normal. Mediastinal contours are normal. There is no evidence for pulmonary edema. IMPRESSION: No acute cardiopulmonary findings. ACT 112: Negative or not required by law. Electronically signed by: Conner Gautam M.D. 11/01/2024 10:53 AM Abdomen/Pelvis CT 11/01/24 14:06 CT SCAN OF THE ABDOMEN AND PELVIS WITHOUT IV CONTRAST CLINICAL HISTORY: Recent ileostomy. Elevated lactate. COMPARISON STUDY: Abdominal CT dated 10/23/2024 TECHNIQUE: CT scan of the abdomen and pelvis is performed from the lung bases to the proximal femora. Images are reviewed in the axial, sagittal, and coronal planes. IV contrast was not administered for this examination as per the referring clinician. Note that the examination was performed and significantly suboptimal fashion without oral and IV contrast. A dose lowering technique was utilized adhering to the principles of ALARA. CT DOSE: 1297.97 mGy.cm FINDINGS: Lung bases: The heart is normal in size and without pericardial effusion. A 2 mm pleural-based nodule at the left lung base on image #30 is unchanged. The lung bases are otherwise clear. A small hiatal hernia is noted. Liver: The unenhanced liver is normal in size, contour, and attenuation. There is no intrahepatic biliary ductal dilatation. A 2.0 cm right lobe hepatic hypodensity on image #38 is unchanged and likely represents a hemangioma when compared to prior studies. Gallbladder: There are tiny calcified gallstones with no CT evidence of acute cholecystitis. Spleen: Normal in size and attenuation. Pancreas: The unenhanced pancreas is grossly unremarkable. Adrenal glands: Unremarkable. Kidneys: The unenhanced kidneys are normal in size and without hydronephrosis. There are no renal calculi identified. A 1.6 cm complex/hyperdense cyst is again seen in the upper pole of left kidney, and a subcentimeter hyperdense cyst there is again seen in the anterior interpolar right kidney. Additional renal cysts measuring up to 2.2 cm. Abdominal vasculature: The abdominal aorta is normal in course and caliber. Bowel: There is postsurgical change from rectosigmoid resection with colocolonic anastomosis. There has also been a distal ileal resection with a double barrel ileostomy in the right lower quadrant. Carotid tracheostomy site is likely related to recent surgery. There are mildly distended loops of small bowel in the left upper quadrant which measure up to 4 cm in diameter. The degree of small bowel distention is significantly improved from 10/24/2019 5 mm representing ileus. There is no transition point or evidence of high-grade obstruction. There are mildly loops of small bowel in the right lower quadrant (axial image #236 and (. There is no pneumatosis intestinalis or portal venous gas. There is [id number] diverticulosis of the remaining colon without CT evidence of acute diverticulitis. The appendix is well-visualized and normal. Peritoneum: There is no intraperitoneal free air or abdominal ascites. Lymphadenopathy: None. Pelvic viscera: The bladder, uterus, and adnexa are normal as visualized. Skeletal structures: The skeletal structures are osteopenic. There is mild to moderate lumbosacral spondylosis. Sclerotic change is noted in the sacroiliac joints. No lytic or blastic lesions are seen. IMPRESSION: 1. Suboptimal examination without oral and IV contrast. 2. There is postsurgical change from rectosigmoid resection as well as ileal resection with double barrel ileostomy in the right lower quadrant. 3. There are mildly distended loops of small bowel in left upper quadrant with no transition point identified and no evidence of high-grade obstruction. The degree of distention has significantly improved from 10/23/2024 and this may represent a mild ileus. Clinical correlation will be essential. 4. There are mildly thick walled loops of small bowel in the right lower quadrant, possibly representing a mild nonspecific enteritis. 5. No intraperitoneal free air is identified. There is no pneumatosis intestinalis or portal venous gas. 6. Cholelithiasis. 7. Diverticulosis of the remaining colon without CT evidence of acute diverticulitis. ACT 112: Negative or not required by law. Electronically signed by: Vinny Smith M.D. 11/01/2024 2:59 PM Ordered Studies 11/01/24 14:06 CT Abdomen and Pelvis [CT abd pelvis wo con] Urgent Hospital Course (1) Hypotension: (2) History of bowel resection: (3) Elevated lactic acid level: (4) Hyponatremia: (5) Acute kidney injury: (6) Hypomagnesemia: (7) Transaminitis: (8) Diabetes mellitus: (9) Hypertension: (10) Hyperlipidemia: (11) Depression: Plan 64 year old female with PMH significant for type 2 diabetes, dyslipidemia, hypertension, osteoarthritis, depression with anxiety, and history of recurrent diverticulitis s/p resection with ileostomy placement on 10/14/2024 with post op ileus and then recent SBO on 10/23/2024 who presented to the ED on 11/01/2024 with dizziness and lightheadedness and is being admitted for hypotension, electrolyte abnormalities, and JOSE MARTIN. Hypotension Patient presented to ED with dizziness x1 day Initial BPs 80s/50s with HRs in the 90s Blood pressure improved with IV fluids Continue to hold antihypertensives until follow-up with primary care physician Monitor blood pressure closely Dizziness resolved Plan to be discharged home today History of bowel resection Elevated lactic acid level-resolved Suspected mild Enteritis History of recurrent diverticulitis s/p resection with ileostomy placement on 10/14/2024 with post op ileus and then recent SBO on 10/23/2024 --CT ABD:There is postsurgical change from rectosigmoid resection as well as ileal resection with double barrel ileostomy in the right lower quadrant. There are mildly distended loops of small bowel in left upper quadrant with no transition point identified and no evidence of high-grade obstruction. The degree of distention has significantly improved from 10/23/2024 and this may represent a mild ileus. Clinical correlation will be essential. There are mildly thick walled loops of small bowel in the right lower quadrant, possibly representing a mild nonspecific enteritis. No intraperitoneal free air is identified. There is no pneumatosis intestinalis or portal venous gas. Cholelithiasis. Diverticulosis of the remaining colon without CT evidence of acute diverticulitis. --Blood cultures: negative to date -- Stool PCR, C. difficile negative --Monitor Volume status, electrolytes Hypovolemic hypotonic hyponatremia Plan to discontinue HCTZ permanently Monitor sodium levels Sodium levels improved to 133 today Advised to increase protein intake Acute kidney injury Likely prerenal, lisinopril, hydrochlorothiazide could be contributing as well Denies NSAIDs use Cr:3.3>2.3>1.5>1.0 Received IV fluids Appreciate nephrology input Avoid nephrotoxic agents as able Hyperkalemia Likely due to JOSE MARTIN, potassium supplement Continue to hold potassium supplement Resolved Monitor Hypomagnesemia Replete and monitor Transaminitis AST 41, ALT 922, alk phos 129 on admission Likely due to dehydration Trended down Type 2 diabetes Hold home metformin while inpatient HbA1c 6.6 BSG ACHS and SSI May need alternative medications on discharge if renal function does not improve Hypertension Hold lisinopril due to hypotension, JOSE MARTIN Plan to discontinue hydrochlorothiazide permanently Monitor and adjust medications as needed Blood pressure stable off antihypertensives Hyperlipidemia Continue atorvastatin Depression Continue citalopram and buspar DVT Px: SQ Heparin Code Status: FULL CODE PCP: Harsha Last Disposition: Home today Total Time Total Time Spent Total Time Spent (In Minutes): 49 minutes Discharge Plan Discharge Items Patient Disposition: Home - Self-Care Reason For Visit: HYPOTENSION Discharge Diagnosis: Hyponatremia Acute kidney injury Hyperkalemia Hypotension Hypomagnesemia Activity: Per Instructions section Exercise/Sports: Gradually increase as tolerated Non-emergency contact: Primary Care Provider and End Worker Call non-emergency contact if: you have any medication questions, your symptoms worsen, your pain is concerning for you and you have a fever Follow-up/Referrals: Harsha Last MD [Primary Care Provider] - Diet: Carb Consistent or DM2 and Heart Healthy Addtl Attending Provider Instructions: Follow-up with your primary care physician in 1 week Follow-up with your quality coordinator as recommended in 2 to 3 weeks. -- Your medications lisinopril, hydrochlorothiazide, potassium chloride and metformin will be held for now until further recommendations from your primary care physician/quality coordinator as you are noted to have worsening renal function and low blood pressure. -- Monitor your blood pressure and blood glucose levels regularly at home. Discuss with your primary care physician for further adjustment of medications as needed. --Obtain Blood Work ( Basic metabolic panel and magnesium level) on Monday and this week (November 05 and ) and Monday/ next week (November 11 and ). Your primary care physician to order labs for you. -- Increase protein intake in your diet as recommended by your quality coordinator Seek immediate medical attention if your symptoms reoccur or worsen Please review medication list provided on discharge for any medication changes as instructed. Please call if you have any questions or problems. You can reach a [facility] hospitalist on duty at [facility] 24 hours a day by calling [phone] Pending Studies at Discharge: No Stand-Alone Forms: My [facility], Smoking Cessation Medications and DC Order Prescriptions: New magnesium chloride [Mag 64] 64 mg Tablet,Delayed Release (Dr/Ec) 64 mg PO BID Qty: 60 1RF Continued atorvastatin 40 mg tablet 40 mg PO DAILY citalopram 40 mg tablet 40 mg PO DAILY aspirin 81 mg tablet,delayed release (DR/EC) 81 mg PO DAILY cyanocobalamin (vitamin B-12) [Vitamin B-12] 1,000 mcg Tablet 1,000 mcg PO DAILY One Daily Women 50 Plus 400-120 mcg-mg Tablet 1 tab PO DAILY buspirone 5 mg Tablet 5 mg PO BID PRN (Reason: Anxiety) fluticasone propionate 50 mcg/actuation spray,suspension 2 spray INTRANASAL QAM Held metformin 850 mg tablet 850 mg PO BID Hold Instructions: Until further recommendations from your primary care physician potassium chloride 10 mEq capsule, extended release 10 meq PO DAILY Hold Instructions: Until further recommendations from your primary care physician, quality coordinator lisinopril-hydrochlorothiazide 20-25 mg tablet 1 tab PO DAILY Hold Instructions: Until further recommendations from your primary care physician Discharge Orders: Discharge Order (Routine); Ordered 11/03/24 Ordered By: Musa Nieto/Other Patient Handouts: Managing Type 2 Diabetes Admission Data Admit Date/Time: 11/01/24 13:59 Attending Provider: Musa Paez Admit Provider: Tyshawn Enriquez Primary Care Provider: Harsha Last Other Providers: Tyshawn Enriquez; Catia España
[2024-11-03 14:33] VITALS: BP 113/71; PULSE 80
--- NOTE | 2024-11-04 07:41 | Electrocardiogram Report ---
Test Reason : Blood Pressure : */* mmHG Vent. Rate : 91 BPM Atrial Rate : 91 BPM P-R Int : 150 ms QRS Dur : 72 ms QT Int : 320 ms P-R-T Axes : 22 72 77 degrees QTcB Int : 393 ms Normal sinus rhythm Early repolarization Borderline ECG When compared with ECG of 19/08/2013 Early repolarization is now present Confirmed by Dorita Romeo (Baylee) on 11/04/2024 7:41:27 AM Referred By: REFERRED SELF Confirmed By: Dorita Romeo
== END 2024-11-03 14:50 | disposition home or self-care (01) | DRG 683 ==
LOC: ED 10:09 → SUATTDRO 13:59 → 2N 13:59